=== PATIENT | female | born 1950 | race Caucasian/White ===

== ENCOUNTER → 2016-04-28 | Outpatient (REF) | payer BC ==
[2016-04-28 18:37] LABS: ALBUMIN 4.2 GM/DL (3.2-5.2); ALBUMIN/GLOBULIN RATIO 1.31 (1.00-1.93); ALKALINE PHOSPHATASE 76 U/L (45-117); ALT/SGPT 28 U/L (12-78); ANION GAP 9 MEQ/L (8-16); AST/SGOT 21 U/L (15-37); BILIRUBIN,TOTAL 0.7 MG/DL (0.2-1.0); BLOOD UREA NITROGEN 18 MG/DL (7-18); CALCIUM LEVEL 8.9 MG/DL (8.8-10.2); CARBON DIOXIDE LEVEL 31 MEQ/L (21-32); CHLORIDE LEVEL 103 MEQ/L (98-107); CHOLESTEROL LEVEL 245 MG/DL (<200); CREATININE FOR GFR 0.82 MG/DL (0.55-1.02); GLOMERULAR FILTRATION RATE > 60.0 (>45); GLUCOSE, FASTING 98 MG/DL (80-110); POTASSIUM SERUM 3.9 MEQ/L (3.5-5.1); SODIUM LEVEL 143 MEQ/L (136-145); TOTAL PROTEIN 7.4 GM/DL (6.4-8.2); TRIGLYCERIDES LEVEL 123 MG/DL (<150)
== END ==
LOC: M SFHCCLAY 11:35
PROVIDERS: ATTEND Family Medicine
DX: I10 Essential (primary) hypertension (principal); E78.2 Mixed hyperlipidemia

== ENCOUNTER → 2017-01-05 | Outpatient (REF) | payer BC ==
[2017-01-05 12:05] LABS: ALBUMIN 3.9 GM/DL (3.2-5.2); ALBUMIN/GLOBULIN RATIO 1.15 (1.00-1.93); ALKALINE PHOSPHATASE 74 U/L (45-117); ALT/SGPT 30 U/L (12-78); ANION GAP 5 MEQ/L (8-16); AST/SGOT 18 U/L (15-37); BILIRUBIN,TOTAL 0.9 MG/DL (0.2-1.0); BLOOD UREA NITROGEN 15 MG/DL (7-18); CARBON DIOXIDE LEVEL 34 MEQ/L (21-32); CHLORIDE LEVEL 100 MEQ/L (98-107); CHOLESTEROL LEVEL 238 MG/DL (<200); CREATININE FOR GFR 0.74 MG/DL (0.55-1.02); GLOMERULAR FILTRATION RATE > 60.0 (>45); GLUCOSE, FASTING 96 MG/DL (80-110); SODIUM LEVEL 139 MEQ/L (136-145); TOTAL PROTEIN 7.3 GM/DL (6.4-8.2); TRIGLYCERIDES LEVEL 127 MG/DL (<150)
== END ==
LOC: M SFHCCLAY 08:50
PROVIDERS: ATTEND Family Medicine
DX: E78.2 Mixed hyperlipidemia (principal); I10 Essential (primary) hypertension

== ENCOUNTER → 2017-07-27 | Outpatient (REF) | payer BC ==
[2017-07-27 17:24] LABS: ALBUMIN/GLOBULIN RATIO 1.18 (1.00-1.93); ALKALINE PHOSPHATASE 71 U/L (45-117); ALT/SGPT 31 U/L (12-78); ANION GAP 4 MEQ/L (8-16); AST/SGOT 19 U/L (7-37); BILIRUBIN,TOTAL 0.7 MG/DL (0.2-1.0); BLOOD UREA NITROGEN 16 MG/DL (7-18); CARBON DIOXIDE LEVEL 31 MEQ/L (21-32); CHLORIDE LEVEL 108 MEQ/L (98-107); CHOLESTEROL LEVEL 240 MG/DL (<200); CREATININE FOR GFR 0.68 MG/DL (0.55-1.30); GLOMERULAR FILTRATION RATE > 60.0 (>45); GLUCOSE, FASTING 100 MG/DL (70-100); HDL CHOLESTEROL 57 MG/DL (>40); LDL CHOLESTEROL 159.4 MG/DL (<100); NON-HDL-C 183 MG/DL; POTASSIUM SERUM 4.1 MEQ/L (3.5-5.1); SODIUM LEVEL 143 MEQ/L (136-145); TOTAL PROTEIN 7.4 GM/DL (6.4-8.2); TRIGLYCERIDES LEVEL 118 MG/DL (<150)
== END ==
LOC: M SFHCCLAY 11:22
DX: I10 Essential (primary) hypertension (principal); E78.2 Mixed hyperlipidemia
CPT/HCPCS: 80053

== ENCOUNTER → 2017-09-25 | Outpatient (REF) | payer BC | LOC: M SFHCLERA 13:18 | DX: J02.9 Acute pharyngitis, unspecified (principal) ==

== ENCOUNTER → 2018-01-24 | Outpatient (CLI) | payer BC ==
[2018-01-24 14:22] LABS: ANION GAP 8 MEQ/L (8-16); AST/SGOT 27 U/L (7-37); BLOOD UREA NITROGEN 15 MG/DL (7-18); CARBON DIOXIDE LEVEL 28 MEQ/L (21-32); CHLORIDE LEVEL 103 MEQ/L (98-107); CREATININE FOR GFR 0.74 MG/DL (0.55-1.30); GLOMERULAR FILTRATION RATE > 60.0 (>45); GLUCOSE, FASTING 104 MG/DL (70-100); POTASSIUM SERUM 4.2 MEQ/L (3.5-5.1); SODIUM LEVEL 139 MEQ/L (136-145)
[2018-01-24 14:23] LABS: ALBUMIN 4.1 GM/DL (3.2-5.2); ALBUMIN/GLOBULIN RATIO 1.14 (1.00-1.93); ALKALINE PHOSPHATASE 76 U/L (45-117); ALT/SGPT 38 U/L (12-78); BILIRUBIN,TOTAL 0.8 MG/DL (0.2-1.0); CHOLESTEROL LEVEL 252 MG/DL (<200); CHOLESTEROL RISK RATIO 4.271 (<5); HDL CHOLESTEROL 59 MG/DL (>40); LDL CHOLESTEROL 169 MG/DL (<100); NON-HDL-C 193 MG/DL; TOTAL PROTEIN 7.7 GM/DL (6.4-8.2); TRIGLYCERIDES LEVEL 121 MG/DL (<150)
== END ==
LOC: M SMT 11:03
DX: E78.2 Mixed hyperlipidemia (principal)
CPT/HCPCS: 80053

== ENCOUNTER 2018-01-26 00:20 | Emergency (ER) | payer BC ==
[2018-01-26] MEDS: methylPREDNISolone INJ 125 MG/2 ML VIAL (J2930) IV (01:12)
[2018-01-26] MEDS: diphenhydrAMINE INJ 50MG/ML VIAL (J1200) IV ×2 (01:13→01:14)
[2018-01-26] MEDS: FAMOTIDINE IV BAG 20 MG in APPROPRIATE DILUENT 1 EA IV (01:17)
== END 2018-01-26 02:08 | disposition home or self-care (01) ==
LOC: M ED 00:20
DX: R21 Rash and other nonspecific skin eruption (principal); T36.0X5A Adverse effect of penicillins, initial encounter; X58.XXXA Exposure to other specified factors, initial encounter; I10 Essential (primary) hypertension; K21.9 Gastro-esophageal reflux disease without esophagitis; Z88.0 Allergy status to penicillin; Z88.8 Allergy status to other drugs, medicaments and biological substances
CPT/HCPCS: J2930

== ENCOUNTER → 2018-03-09 | Outpatient (CLI) | payer BC | LOC: M RAD 12:50 | DX: N64.4 Mastodynia (principal); N60.32 Fibrosclerosis of left breast | CPT/HCPCS: 77066 ==

== ENCOUNTER → 2018-05-31 | Outpatient (REF) | payer BC ==
[~2018-05-31] MED LIST: AMOX875T PO; OMEP20CA3; PEPC1TAB5 PO; PRED20TA PO; TRIAMTERENE
== END ==
LOC: M SFHCWAGY 14:07
PROVIDERS: ATTEND Nurse Practitioner Family
DX: Z12.4 Encounter for screening for malignant neoplasm of cervix (principal); Z11.51 Encounter for screening for human papillomavirus (HPV); N88.8 Other specified noninflammatory disorders of cervix uteri

== ENCOUNTER → 2018-06-28 | Outpatient (CLI) | payer BC ==
--- NOTE | 2018-06-29 02:37 | REP ---
Clinical: Right hip pain. Technique: Neutral and frog lateral views of the right hip. Findings: Mild age-related degenerative changes are appreciated including subtle increase sclerosis to the acetabular roof with minimal joint space narrowing and marginal spurring. No acute fracture dislocation. No periarticular calcifications or loose bodies. Surrounding soft tissues normal. Impression: Mild age-related changes.
== END ==
LOC: M CLY 13:21
PROVIDERS: ATTEND Nurse Practitioner Family
DX: M16.11 Unilateral primary osteoarthritis, right hip (principal); M25.551 Pain in right hip

== ENCOUNTER → 2018-07-22 | Outpatient (REF) | payer BC ==
[2018-07-22 17:06] LABS: ALBUMIN 3.9 GM/DL (3.2-5.2); ALT/SGPT 32 U/L (12-78); BILIRUBIN,TOTAL 0.8 MG/DL (0.2-1.0); BLOOD UREA NITROGEN 19 MG/DL (7-18); CARBON DIOXIDE LEVEL 33 MEQ/L (21-32); CHLORIDE LEVEL 104 MEQ/L (98-107); CHOLESTEROL LEVEL 234 MG/DL (<200); CHOLESTEROL RISK RATIO 4.034 (<5); CREATININE FOR GFR 0.76 MG/DL (0.55-1.30); GLOMERULAR FILTRATION RATE > 60.0 (>45); GLUCOSE, FASTING 98 MG/DL (70-100); HDL CHOLESTEROL 58 MG/DL (>40); LDL CHOLESTEROL 148 MG/DL (<100); NON-HDL-C 176 MG/DL; POTASSIUM SERUM 3.7 MEQ/L (3.5-5.1); SODIUM LEVEL 143 MEQ/L (136-145); TOTAL PROTEIN 7.1 GM/DL (6.4-8.2); TRIGLYCERIDES LEVEL 140 MG/DL (<150)
== END ==
LOC: M SFHCCLAY 10:51
PROVIDERS: ATTEND Family Medicine
DX: E78.2 Mixed hyperlipidemia (principal)

== ENCOUNTER → 2018-10-31 | Outpatient (CLI) | payer BC ==
[~2018-10-31] MED LIST changes: -OMEP20CA3; +OMEP20CA4
[2018-10-31 10:24] LABS: ALT/SGPT 24 U/L (12-78); BILIRUBIN,TOTAL 0.7 MG/DL (0.2-1.0); BLOOD UREA NITROGEN 14 MG/DL (7-18); CALCIUM LEVEL 8.8 MG/DL (8.8-10.2); CARBON DIOXIDE LEVEL 30 MEQ/L (21-32); CHLORIDE LEVEL 104 MEQ/L (98-107); CHOLESTEROL LEVEL 210 MG/DL (<200); CREATININE FOR GFR 0.69 MG/DL (0.55-1.30); GLOMERULAR FILTRATION RATE > 60.0 (>45); GLUCOSE, FASTING 105 MG/DL (70-100); HDL CHOLESTEROL 58 MG/DL (>40); LDL CHOLESTEROL 120 MG/DL (<100); NON-HDL-C 152 MG/DL; POTASSIUM SERUM 3.8 MEQ/L (3.5-5.1); SODIUM LEVEL 141 MEQ/L (136-145); TOTAL PROTEIN 7.4 GM/DL (6.4-8.2); TRIGLYCERIDES LEVEL 161 MG/DL (<150)
== END ==
LOC: M SMT 08:22
PROVIDERS: ATTEND Family Medicine
DX: E78.2 Mixed hyperlipidemia (principal)

== ENCOUNTER → 2019-03-31 | Outpatient (REF) | payer BC ==
[~2019-03-31] MED LIST changes: +OMEP-172; -OMEP20CA4
[2019-03-31 11:58] LABS: BASO # 0.1 10^3/uL (0.0-0.2); BASO % 0.7 % (0.0-1.0); EOS # 0.1 10^3/uL (0.0-0.5); EOS % 1.3 % (0.0-3.0); HEMATOCRIT 38.5 % (36.0-47.0); LYMPH # 2.4 10^3/uL (1.5-5.0); LYMPH % 24.9 % (24.0-44.0); MEAN CORPUSCULAR HEMOGLOBIN 32.3 pg (27.0-33.0); MEAN CORPUSCULAR HGB CONC 33.8 g/dl (32.0-36.5); MEAN CORPUSCULAR VOLUME 95.5 fl (80.0-96.0); MONO # 0.8 10^3/uL (0.0-0.8); MONO % 8.3 % (0.0-5.0); NEUTROPHILS # 6.2 10^3/uL (1.5-8.5); NEUTROPHILS % 64.1 % (36.0-66.0); PLATELET COUNT, AUTOMATED 323 10^3/uL (150-450); RED BLOOD COUNT 4.03 10^6/uL (4.00-5.40); WHITE BLOOD COUNT 9.7 10^3/uL (4.0-10.0)
[2019-03-31 12:33] LABS: HEMOGLOBIN A1c 6.3 %
[2019-03-31 12:42] LABS: ALT/SGPT 27 U/L (12-78); BILIRUBIN,TOTAL 0.8 MG/DL (0.2-1.0); BLOOD UREA NITROGEN 14 MG/DL (7-18); CALCIUM LEVEL 9.3 MG/DL (8.8-10.2); CARBON DIOXIDE LEVEL 33 MEQ/L (21-32); CHLORIDE LEVEL 102 MEQ/L (98-107); CHOLESTEROL LEVEL 251 MG/DL (<200); CHOLESTEROL RISK RATIO 4.183 (<5); CREATININE FOR GFR 0.74 MG/DL (0.55-1.30); GLOMERULAR FILTRATION RATE > 60.0 (>45); GLUCOSE, FASTING 101 MG/DL (70-100); HDL CHOLESTEROL 60 MG/DL (>40); LDL CHOLESTEROL 162 MG/DL (<100); NON-HDL-C 191 MG/DL; POTASSIUM SERUM 3.9 MEQ/L (3.5-5.1); SODIUM LEVEL 140 MEQ/L (136-145); TOTAL PROTEIN 7.5 GM/DL (6.4-8.2); TRIGLYCERIDES LEVEL 145 MG/DL (<150)
== END ==
LOC: M SFHCCLAY 09:46
PROVIDERS: ATTEND Family Medicine
DX: I10 Essential (primary) hypertension (principal); R73.01 Impaired fasting glucose; E78.2 Mixed hyperlipidemia

== ENCOUNTER → 2019-05-24 | Outpatient (REF) | payer BC ==
[~2019-05-24] MED LIST changes: -OMEP-172; +OMEP1CAP73
== END ==
LOC: M SFHCLERA 16:18
PROVIDERS: ATTEND Nurse Practitioner Family
DX: J02.9 Acute pharyngitis, unspecified (principal)

== ENCOUNTER → 2019-09-19 | Outpatient (REF) | payer BC ==
[2019-09-19 18:55] LABS: BASO # 0.1 10^3/uL (0.0-0.2); BASO % 0.8 % (0.0-1.0); EOS # 0.1 10^3/uL (0.0-0.5); EOS % 1.8 % (0.0-3.0); HEMATOCRIT 40.6 % (36.0-47.0); HEMOGLOBIN 13.5 g/dl (12.0-15.5); LYMPH # 2.1 10^3/uL (1.5-5.0); MEAN CORPUSCULAR HEMOGLOBIN 31.7 pg (27.0-33.0); MEAN CORPUSCULAR HGB CONC 33.3 g/dl (32.0-36.5); MEAN CORPUSCULAR VOLUME 95.3 fl (80.0-96.0); MONO # 0.6 10^3/uL (0.0-0.8); MONO % 7.4 % (0.0-5.0); NEUTROPHILS # 5.1 10^3/uL (1.5-8.5); NEUTROPHILS % 63.5 % (36.0-66.0); PLATELET COUNT, AUTOMATED 314 10^3/uL (150-450); RED BLOOD COUNT 4.26 10^6/uL (4.00-5.40)
[2019-09-19 19:27] LABS: ALBUMIN 3.9 GM/DL (3.2-5.2); ALT/SGPT 23 U/L (12-78); BILIRUBIN,TOTAL 0.7 MG/DL (0.2-1.0); BLOOD UREA NITROGEN 19 MG/DL (7-18); CALCIUM LEVEL 9.1 MG/DL (8.8-10.2); CARBON DIOXIDE LEVEL 30 MEQ/L (21-32); CHLORIDE LEVEL 104 MEQ/L (98-107); CHOLESTEROL LEVEL 209 MG/DL (<200); CHOLESTEROL RISK RATIO 3.542 (<5); CREATININE FOR GFR 0.71 MG/DL (0.55-1.30); GLOMERULAR FILTRATION RATE > 60.0 (>45); GLUCOSE, FASTING 101 MG/DL (70-100); HDL CHOLESTEROL 59 MG/DL (>40); LDL CHOLESTEROL 126 MG/DL (<100); NON-HDL-C 150 MG/DL; POTASSIUM SERUM 4.2 MEQ/L (3.5-5.1); SODIUM LEVEL 139 MEQ/L (136-145); TOTAL PROTEIN 7.4 GM/DL (6.4-8.2); TRIGLYCERIDES LEVEL 118 MG/DL (<150)
[2019-09-19 21:31] LABS: HEMOGLOBIN A1c 5.7 %
== END ==
LOC: M SFHCCLAY 10:05
PROVIDERS: ATTEND Family Medicine
DX: I10 Essential (primary) hypertension (principal); R73.01 Impaired fasting glucose; E78.2 Mixed hyperlipidemia

== ENCOUNTER → 2020-01-08 | Outpatient (REF) | payer BC ==
[2020-01-08 12:59] LABS: ALBUMIN 3.9 GM/DL (3.2-5.2); ALT/SGPT 25 U/L (12-78); BILIRUBIN,TOTAL 0.8 MG/DL (0.2-1.0); BLOOD UREA NITROGEN 17 MG/DL (7-18); CALCIUM LEVEL 9.3 MG/DL (8.8-10.2); CARBON DIOXIDE LEVEL 33 MEQ/L (21-32); CHLORIDE LEVEL 107 MEQ/L (98-107); CREATININE FOR GFR 0.67 MG/DL (0.55-1.30); GLOMERULAR FILTRATION RATE > 60.0 (>45); GLUCOSE, FASTING 103 MG/DL (70-100); MAGNESIUM LEVEL 2.2 MG/DL (1.8-2.4); POTASSIUM SERUM 3.9 MEQ/L (3.5-5.1); SODIUM LEVEL 141 MEQ/L (136-145); TOTAL PROTEIN 7.2 GM/DL (6.4-8.2)
== END ==
LOC: M SFHCCLAY 12:06
PROVIDERS: ATTEND Family Medicine
DX: I10 Essential (primary) hypertension (principal); E78.2 Mixed hyperlipidemia; E11.9 Type 2 diabetes mellitus without complications

== ENCOUNTER → 2020-06-21 | Outpatient (REF) | payer BC ==
[2020-06-21 16:34] LABS: ALBUMIN 3.9 GM/DL (3.2-5.2); ALT/SGPT 28 U/L (12-78); BILIRUBIN,TOTAL 0.7 MG/DL (0.2-1.0); BLOOD UREA NITROGEN 16 MG/DL (7-18); CALCIUM LEVEL 9.5 MG/DL (8.8-10.2); CARBON DIOXIDE LEVEL 32 MEQ/L (21-32); CHLORIDE LEVEL 106 MEQ/L (98-107); CREATININE FOR GFR 0.68 MG/DL (0.55-1.30); GLOMERULAR FILTRATION RATE > 60.0 (>45); GLUCOSE, FASTING 97 MG/DL (70-100); SODIUM LEVEL 142 MEQ/L (136-145); TOTAL PROTEIN 7.1 GM/DL (6.4-8.2)
[2020-06-21 16:36] LABS: BASO # 0.1 10^3/uL (0.0-0.2); BASO % 0.9 % (0.0-1.0); EOS # 0.1 10^3/uL (0.0-0.5); EOS % 1.7 % (0.0-3.0); HEMATOCRIT 38.7 % (36.0-47.0); HEMOGLOBIN 12.5 g/dl (12.0-15.5); LYMPH # 2.6 10^3/uL (1.5-5.0); LYMPH % 34.2 % (24.0-44.0); MEAN CORPUSCULAR HEMOGLOBIN 30.9 pg (27.0-33.0); MEAN CORPUSCULAR HGB CONC 32.3 g/dl (32.0-36.5); MEAN CORPUSCULAR VOLUME 95.8 fl (80.0-96.0); MONO # 0.6 10^3/uL (0.0-0.8); MONO % 7.9 % (2.0-8.0); NEUTROPHILS # 4.1 10^3/uL (1.5-8.5); NEUTROPHILS % 54.5 % (36.0-66.0); PLATELET COUNT, AUTOMATED 294 10^3/uL (150-450); RED BLOOD COUNT 4.04 10^6/uL (4.00-5.40); WHITE BLOOD COUNT 7.5 10^3/uL (4.0-10.0)
[2020-06-21 16:46] LABS: HEMOGLOBIN A1c 5.7 %
== END ==
LOC: M SFHCCLAY 11:24
PROVIDERS: ATTEND Family Medicine
DX: I10 Essential (primary) hypertension (principal); R73.01 Impaired fasting glucose

== ENCOUNTER → 2020-07-22 | Outpatient (CLI) | payer BC ==
--- NOTE | 2020-07-22 17:13 | REPMRS ---
Patient History The patient states she had a clinical breast exam in June 2020. No known family history of cancer. Benign excisional biopsy of the right breast, 1995. Taking unspecified hormones for 2 years. Digital Woman Screen Mammo: July 22, 2020 - Exam #: [id number] Bilateral CC and MLO view(s) were taken. Technologist: Mony Hatch, Technologist Prior study comparison: March 09, 2018, digital mammo diagnostic bilateral, performed at [facility]. May 07, 2015, digital woman screen mammo performed at [facility]. October 16, 2013, digital woman screen mammo performed at [facility]. FINDINGS: The breast tissue is heterogeneously dense. This may lower the sensitivity of mammography. The Volpara volumetric breast density category is: C. There is a moderate amount of heterogeneously dense fibroglandular tissue which is fairly symmetric. There is no interval development of dominant mass, architectural distortion, or grouped microcalcification typical of malignancy. There has been no change in the appearance of the mammogram from the prior studies. 3-D tomosynthesis shows no additional findings. Assessment: BI-RADS/ACR category 1 mammogram. Negative Mammogram. Recommendation Routine screening mammogram of both breasts in 1 year (for women over age 40). This patient's [facility] Lifetime Breast Cancer RIsk is estimated at 6.8 %. This mammogram was interpreted with the aid of an FDA-approved computer-aided dectection system. Electronically Signed By: Mark James MD 07/22/20 [id number]
== END ==
LOC: M WHC 13:33
PROVIDERS: ATTEND Nurse Practitioner Family
DX: Z12.31 Encounter for screening mammogram for malignant neoplasm of breast (principal)

== ENCOUNTER → 2020-10-22 | Outpatient (CLI) | payer BC ==
[2020-10-22 13:38] LABS: BASO # 0.1 10^3/uL (0.0-0.2); BASO % 0.8 % (0.0-1.0); EOS # 0.1 10^3/uL (0.0-0.5); EOS % 0.7 % (0.0-3.0); HEMATOCRIT 38.1 % (36.0-47.0); HEMOGLOBIN 12.6 g/dl (12.0-15.5); LYMPH # 2.1 10^3/uL (1.5-5.0); LYMPH % 24.7 % (24.0-44.0); MEAN CORPUSCULAR HEMOGLOBIN 31.4 pg (27.0-33.0); MEAN CORPUSCULAR HGB CONC 33.1 g/dl (32.0-36.5); MONO # 0.6 10^3/uL (0.0-0.8); MONO % 6.6 % (2.0-8.0); NEUTROPHILS # 5.6 10^3/uL (1.5-8.5); NEUTROPHILS % 66.7 % (36.0-66.0); PLATELET COUNT, AUTOMATED 327 10^3/uL (150-450); RED BLOOD COUNT 4.01 10^6/uL (4.00-5.40); WHITE BLOOD COUNT 8.3 10^3/uL (4.0-10.0)
[2020-10-22 14:07] LABS: HEMOGLOBIN A1c 5.6 %
[2020-10-22 14:09] LABS: ALBUMIN 4.1 GM/DL (3.2-5.2); ALT/SGPT 18 U/L (12-78); AMYLASE 37 U/L (25-115); BILIRUBIN,TOTAL 0.8 MG/DL (0.2-1.0); BLOOD UREA NITROGEN 15 MG/DL (7-18); CALCIUM LEVEL 9.3 MG/DL (8.8-10.2); CARBON DIOXIDE LEVEL 32 MEQ/L (21-32); CHLORIDE LEVEL 103 MEQ/L (98-107); CHOLESTEROL LEVEL 221 MG/DL (<200); CHOLESTEROL RISK RATIO 3.507 (<5); CREATININE FOR GFR 0.66 MG/DL (0.55-1.30); GLOMERULAR FILTRATION RATE > 60.0 (>45); GLUCOSE, FASTING 106 MG/DL (70-100); HDL CHOLESTEROL 63 MG/DL (>40); LDL CHOLESTEROL 137 MG/DL (<100); LIPASE 134 U/L (73-393); MAGNESIUM LEVEL 2.1 MG/DL (1.8-2.4); NON-HDL-C 158 MG/DL; POTASSIUM SERUM 3.7 MEQ/L (3.5-5.1); SODIUM LEVEL 141 MEQ/L (136-145); TOTAL PROTEIN 7.2 GM/DL (6.4-8.2); TRIGLYCERIDES LEVEL 106 MG/DL (<150)
== END ==
LOC: M PLALAB 09:29
PROVIDERS: ATTEND Family Medicine
DX: I10 Essential (primary) hypertension (principal); R73.01 Impaired fasting glucose; E78.2 Mixed hyperlipidemia; K21.9 Gastro-esophageal reflux disease without esophagitis; K29.70 Gastritis, unspecified, without bleeding

== ENCOUNTER → 2021-02-04 | Outpatient (REF) | payer BC ==
[2021-02-04 16:23] LABS: BASO # 0.1 10^3/uL (0.0-0.2); BASO % 0.8 % (0.0-1.0); EOS # 0.1 10^3/uL (0.0-0.5); EOS % 0.6 % (0.0-3.0); HEMATOCRIT 39.8 % (36.0-47.0); HEMOGLOBIN 13.1 g/dl (12.0-15.5); LYMPH # 1.7 10^3/uL (1.5-5.0); LYMPH % 19.7 % (24.0-44.0); MEAN CORPUSCULAR HEMOGLOBIN 31.4 pg (27.0-33.0); MEAN CORPUSCULAR HGB CONC 32.9 g/dl (32.0-36.5); MEAN CORPUSCULAR VOLUME 95.4 fl (80.0-96.0); MONO # 0.6 10^3/uL (0.0-0.8); MONO % 7.4 % (2.0-8.0); NEUTROPHILS # 6.2 10^3/uL (1.5-8.5); NEUTROPHILS % 70.9 % (36.0-66.0); PLATELET COUNT, AUTOMATED 334 10^3/uL (150-450); RED BLOOD COUNT 4.17 10^6/uL (4.00-5.40); WHITE BLOOD COUNT 8.7 10^3/uL (4.0-10.0)
[2021-02-04 16:50] LABS: ERYTHROCYTE SEDIMENTATION RATE 14 mm/hr (0-30)
[2021-02-04 17:04] LABS: ALT/SGPT 18 U/L (12-78); BILIRUBIN,TOTAL 0.8 MG/DL (0.2-1.0); BLOOD UREA NITROGEN 16 MG/DL (7-18); C REACTIVE PROTEIN QUANTITATIV 0.44 MG/DL (0.00-0.30); CALCIUM LEVEL 9.7 MG/DL (8.8-10.2); CARBON DIOXIDE LEVEL 30 MEQ/L (21-32); CHLORIDE LEVEL 105 MEQ/L (98-107); CREATININE FOR GFR 0.72 MG/DL (0.55-1.30); GLOMERULAR FILTRATION RATE > 60.0 (>45); GLUCOSE, FASTING 111 MG/DL (70-100); POTASSIUM SERUM 3.8 MEQ/L (3.5-5.1); SODIUM LEVEL 141 MEQ/L (136-145); TOTAL PROTEIN 7.4 GM/DL (6.4-8.2)
[2021-02-04 18:18] LABS: HEMOGLOBIN A1c 5.5 %
== END ==
LOC: M SFHCCLAY 10:55
PROVIDERS: ATTEND Family Medicine
DX: K21.9 Gastro-esophageal reflux disease without esophagitis (principal); R10.84 Generalized abdominal pain; R73.01 Impaired fasting glucose; I10 Essential (primary) hypertension

== ENCOUNTER 2021-02-13 10:30 | Emergency (ER) | payer BC ==
[~2021-02-13] VITALS: Ht 157.5 cm; Wt 58.6 kg
--- OUTSIDE RECORDS SUMMARY | 2021-02-13 10:37 | CCD ---
Author Author [facility] Organization [facility] Address Unknown Phone Unavailable Care Team Providers Care Joint Cutter Machine Name Role Phone Ashley Damon Unavailable PROBLEMS Type Condition ICD9-CM Code [id number] Code Onset Dates Condition S tatus W/U Status Risk SNOMED Code Notes Problem Vaginal dryness, menopausal N95.1 Active confirmed 29811752 Problem Essential hypertension I10 Active confirmed 52096399 Problem Piriformis syndrome of right side G57.01 Active confirmed 473351564724309 Problem Gastritis without bleeding, unspecified chronicity, unspecified gastritis type K29.70 Active confirmed 5171843 Problem Mixed hyperlipidemia E78.2 Active confirmed 574121664 Problem Allergic rhinitis, unspecified allergic rhinitis type J30.9 Active confirmed 04739732 Problem Gastroesophageal reflux disease without esophagitis K21.9 Active confirmed 319499629 Problem Seborrheic keratoses L82.1 Active confirmed 288047211 ALLERGIES Allergen (clinical drug ingredient) Drug/Non Drug Allergy do cumented on EMR Reaction Allergy Type Onset Date Status amoxicillin Amoxicillin(NDC Code:[address]-53) Hives Drug Aller gy Active Benadryl anxiety Drug Allergy Active lisinopril Lisinopril(NDC Code:[address]-16) cough Drug Allergy Active rosuvastatin Crestor(NDC Code:[address]-08) Myalgia Drug Allergy Active ENCOUNTERS from 1950 to 2021-02-10 Encounter Location Date Provider Diagnosis [facility] Josephine STRAWDOMINGO [phone] [place] [address] Jan, 2021 Damon Huizenga Gastroesophageal reflux disease without esophagitis K21.9 IMMUNIZATIONS Vaccine Route Administration Date Status COVID-19 dose #2 given elsewhere Unspecified Unknown May 20, 2020 Administered Pneumococcal 0.5mL Prevnar 13 IM Intramuscular November 01, 2018 A dministered Influenza 6mo & up Fluzone Unknown Feb 08, 2017 Admin istered Influenza 6mo & up Fluzone Unknown Feb 09, 2016 Admin istered SOCIAL HISTORY Tobacco Use: Social History Observation Description Date Details (start date - stop date) Never Smoker Sex Assigned At : Social History Observation Description Sex Assigned At Unknown Education: Question Answer Notes Level of Education: Finished High School Audit Question Answer Notes Total Score: 1 Interpretation: Alcohol Education Language: Question Answer Notes Languages spoken: Vietnamese Confucianism: Question Answer Notes Confucianism 21 Mu-Ism Domestic Violence: Question Answer Notes Status: Sexual Hx: Question Answer Notes Had sex in the last 12 months (vaginal, oral, or anal)? Yes Have you ever had an STD? No Prevention Strategies discussed: Other with Men only Use protection? No Drug and Alcohol Question Answer Notes Total Score: 0 Interpretation: No problems reported Alcohol Screening: Question Answer Notes Did you have a drink containing alcohol in the past year? Ye s Points 2 Interpretation Negative How often did you have six or more drinks on one occas ion in the past year? Never (0 points) How many drinks did you have on a typica l day when you were drinking in the past year? 3 or 4 (1 point) How often did you have a drink containing alcohol in t he past year? Monthly or less (1 point) BMI Care Goal Follow-Up Question Answer Notes Above Normal BMI Follow-Up Giving encouragement to exercise Tobacco Use: Question Answer Notes Are you a: never smoker never smoker REASON FOR REFERRAL No Information VITAL SIGNS No information MEDICATIONS Medication SIG (Take, Route, Frequency, Duration) Notes Start Da te End Date Status Omeprazole 20 MG 1 capsule 30 minutes before morning meal Orally Once a day for 90 days Active Yuvafem 10 MCG 1 tablet Vaginal Two times a Week for 90 days Active Pravastatin Sodium 40 MG 1 tablet Orally Once a day for 90 days Active Triamterene-HCTZ 37.5-25 MG 1 capsule in the morning O rally Once a day for 90 days Active Dicyclomine HCl 20 MG 1 tablet Orally Three times a day for 30 d ay(s) Jan, Active Losartan Potassium 25 MG 1 tablet Orally Daily for 90 days Active PROCEDURES No Information RESULTS No Results REASON FOR VISIT lab results MEDICAL (GENERAL) HISTORY Type Description Date Medical History GERD Medical History Hypertension Medical History Hyperlipidemia Medical History Impaired glucose Surgical History Rt breast cyst removal -benign 1996 Surgical History Dental surgery 04/2008 Goals Section No Information Health Concerns No Information MEDICAL EQUIPMENT No Information MENTAL STATUS No Information FUNCTIONAL STATUS No Information ASSESSMENTS Encounter Date Diagnosis Assessment Notes Treatment Notes Treatm ent Clinical Notes Jan, Gastroesophageal reflux dise ase without esophagitis (ICD-10 - K21.9) PLAN OF TREATMENT Medication Medication Name Sig Start Date Stop Date Triamterene-HCTZ 37.5-25 MG 1 capsule in the morning O rally Once a day for 90 days Dicyclomine HCl 20 MG 1 tablet Orally Three times a day for 30 day(s) Jan, Pravastatin Sodium 40 MG 1 tablet Orally Once a day for 90 days Losartan Potassium 25 MG 1 tablet Orally Daily for 90 days Treatment Notes Test Name Order Date XRAY UPPER G.I. WITH SMALL BOWEL XR.UGSB PLZ or [facility] 13-02-14 Next Appt Details Provider Name:Damon Ramirez, 03:00:00 PM, [address] , , [place], [address], Insurance Providers Payer Name Payer Address Payer Phone Insured Name Patient Relati onship to Insured Coverage Start Date Coverage End Date [facility] [id number] [facility] [id number] MARSHA ROMERO self
--- OUTSIDE RECORDS SUMMARY | 2021-02-13 10:38 | CCD ---
Author Author [facility] Organization [facility] Address Unknown Phone Unavailable Care Team Providers Care Embossing Machine Operator Name Role Phone Damon Ramirez Unavailable PROBLEMS Type Condition ICD9-CM Code [id number] Code Onset Dates Condition S tatus W/U Status Risk SNOMED Code Notes Problem Vaginal dryness, menopausal N95.1 Active confirmed 47415279 Problem Essential hypertension I10 Active confirmed 97158263 Problem Piriformis syndrome of right side G57.01 Active confirmed 323377815012557 Problem Gastritis without bleeding, unspecified chronicity, unspecified gastritis type K29.70 Active confirmed 8345401 Problem Mixed hyperlipidemia E78.2 Active confirmed 765655806 Problem Allergic rhinitis, unspecified allergic rhinitis type J30.9 Active confirmed 94167843 Problem Gastroesophageal reflux disease without esophagitis K21.9 Active confirmed 466889385 Problem Seborrheic keratoses L82.1 Active confirmed 137426096 ALLERGIES Allergen (clinical drug ingredient) Drug/Non Drug Allergy do cumented on EMR Reaction Allergy Type Onset Date Status amoxicillin Amoxicillin(NDC Code:[address]-66) Hives Drug Aller gy Active Benadryl anxiety Drug Allergy Active lisinopril Lisinopril(NDC Code:[address]-98) cough Drug Allergy Active rosuvastatin Crestor(NDC Code:[address]-17) Myalgia Drug Allergy Active ENCOUNTERS from 1950 to 2021-02-03 Encounter Location Date Provider Diagnosis [facility] [id number] [place] [address] [place] [address] Jan, Damon Huizenga IMMUNIZATIONS Vaccine Route Administration Date Status COVID-19 [...] Education Language: Question Answer Notes Languages spoken: Irish Gnosticism: Question Answer Notes Gnosticism 21 Jainism Domestic Violence: Question Answer Notes Status: Sexual [...] Notes Start Da te End Date Status Pravastatin Sodium 40 MG 1 tablet Orally Once a day for 90 days Active Carafate 1 GM 1 tablet on an empty stomach Orally four times daily Active Losartan Potassium 25 MG 1 tablet Orally Daily for 90 days Active Triamterene-HCTZ 37.5-25 MG 1 capsule in the morning O rally Once a day for 90 days Active Omeprazole 20 MG 1 capsule 30 minutes before morning meal Orally Once a day for 90 days Active Yuvafem 10 MCG 1 tablet Vaginal Two times a Week for 90 days Active PROCEDURES No Information RESULTS No Results REASON FOR VISIT triage MEDICAL (GENERAL) HISTORY Type Description Date Medical History GERD Medical History Hypertension Medical History Hyperlipidemia Medical History Impaired glucose Surgical History Rt breast cyst removal -benign 1996 Surgical History Dental surgery 04/2008 Goals Section No Information Health Concerns No Information MEDICAL EQUIPMENT No Information MENTAL STATUS No Information FUNCTIONAL STATUS No Information ASSESSMENTS No Information PLAN OF TREATMENT Medication Medication Name Sig Start Date Stop Date Pravastatin Sodium 40 MG 1 tablet Orally Once a day for 90 days Omeprazole 20 MG 1 capsule 30 minutes before morning meal Orally Once a day for 90 days Yuvafem 10 MCG 1 tablet Vaginal Two times a Week for 90 days Triamterene-HCTZ 37.5-25 MG 1 capsule in the morning O rally Once a day for 90 days Losartan Potassium 25 MG 1 tablet Orally Daily for 90 days Next Appt Details Provider Name:Damon Ramirez, 10:30:00 AM, [address], , [place], [address], Provider Name:Damon Ramirez, 03:00:00 PM, [address], , [place], [address], Insurance Providers Payer Name Payer Address Payer Phone Insured Name Patient Relati onship to Insured Coverage Start Date Coverage End Date [facility] [phone] [facility] [id number] MARSHA ROMERO self
--- OUTSIDE RECORDS SUMMARY | 2021-02-13 10:38 | CCD ---
Author Author [facility] Organization [facility] Address Unknown Phone Unavailable Support Name Relationship Address Phone SOTO DE [place] O Next Of Kin [address] [place] [address] [facility] Next Of [address] [place] [address] NICK DAMI Next Of Kin [address] [place] [address] Nick Dami [facility] [address] [place] [address] Re-disclosure Warning The records that you are about to access may contain information from federally-assisted alcohol or drug abuse programs. If such information is present, then the following federally mandated warning applies: This information has been disclosed to you from records protected by federal confidentiality rules (42 CFR part 2). The federal rules prohibit you from making any further disclosure of this information unless further disclosure is expressly permitted by the written consent of the person to whom it pertains or as otherwise permitted by 42 CFR part 2. A general authorization for the release of medical or other information is NOT sufficient for this purpose. The Federal rules restrict any use of the information to criminally investigate or prosecute any alcohol or drug abuse patient.The records that you are about to access may contain highly sensitive health information, the redisclosure of which is protected by Article 27-F of the [facility] Public Health law. If you continue you may have access to information: Regarding HIV / AIDS; Provided by facilities licensed or operated by the [facility] Office of Mental Health; or Provided by the [facility] Office for People With Developmental Disabilities. If such information is present, then the following [facility] mandated warning applies: This information has been disclosed to you from confidential records which are protected by state law. State law prohibits you from making any further disclosure of this information without the specific written consent of the person to whom it pertains, or as otherwise permitted by law. Any unauthorized further disclosure in violation of state law may result in a fine or skilled nursing sentence or both. A general authorization for the release of medical or other information is NOT sufficient authorization for further disc losure. Family History Family Member Name Family Member Gender Family Member Status Date o f Status Description Data Source(s) Unknown Unknown Problem MEDENT ([facility], [facility]) mother,father Unknown Female Problem [facility] ([facility] Encounters Encounter Providers Location Date Indications Data Source(s ) Unknown [address] [facility] [place] [address] 02/06/2021 12:00:00 AM EDT [facility]CW1 ([facility]) Unknown [address] [facility] [place] [address] 02/03/2021 12:00:00 AM EDT [facility] Unknown [address] [facility] [place] [address] 01/22/2021 12:00:00 AM EDT [facility]1 [facility] [place] [address] [facility] [address] [place] [address] 10/25/2020 12:00:00 AM EDT eCW1 ([facility]) Unknown [address] [facility] [place] [address] 10/11/2020 12:00:00 AM EDT [facility]1 [facility]) Outpatient [address] [facility] [address] [place] [address] 07/22/2020 12:00:00 AM EDT [facility]1 [facility]) Unknown [address] [facility] [address] [place] [address] 07/15/2020 12:00:00 AM EDT eCW1 ([facility]) Outpatient [address] [facility] [place] [id number] 06/21/2020 12:00:00 AM EST eCW1 ([facility]) Unknown [address] [facility] [place] [address] 06/21/2020 12:00:00 AM EST eCW1 ([facility]) Unknown [address] [facility] [place] [address] 04/03/2020 12:00:00 AM EST eCW1 ([facility]) [facility] [address] [facility] [place] [address] 01/09/2020 12:00:00 AM EDT eCW1 ([facility]) Immunizations Vaccine Date Status Description Data Source(s) COVID-19 dose #2 given elsewhere Unspecified 05/20/2020 11:1 6:00 AM EST completed eCW1 ([facility]) COVID-19 dose #2 given elsewhere Unspecified 05/20/2020 11:1 6:00 AM EST completed eCW1 ([facility]) COVID-19 dose #2 given elsewhere Unspecified 05/20/2020 11:1 6:00 AM EST completed eCW1 ([facility]) COVID-19 dose #2 given elsewhere Unspecified 05/20/2020 11:1 6:00 AM EST completed eCW1 ([facility]) COVID-19 dose #2 given elsewhere Unspecified 05/20/2020 11:1 6:00 AM EST completed eCW1 ([facility]) COVID-19 dose #2 given elsewhere Unspecified 05/20/2020 11:1 6:00 AM EST completed eCW1 ([facility]) COVID-19 dose #2 given elsewhere Unspecified 05/20/2020 11:1 6:00 AM EST completed eCW1 ([facility]) COVID-19 dose #2 given elsewhere Unspecified 05/20/2020 11:1 6:00 AM EST completed eCW1 ([facility]) COVID-19 dose #2 given elsewhere Unspecified 05/20/2020 11:1 6:00 AM EST completed eCW1 ([facility]) COVID-19 VACCINE Pfizer 05/20/2020 12:00:00 AM EST completed [facility] Vaccine Series Complete: YESThis Data wa s Submitted to [facility] Via [employer]. COVID-19 VACCINE Pfizer 04/29/2020 12:00:00 AM EST completed [facility] Vaccine Series Complete: NOThis Data was Submitted to [facility] Via [employer]. Medications Medication Brand Name Start Date Product Form Dose Route Admi nistrative Instructions Pharmacy Instructions Status Indications Reaction Description Data Source(s) Dicyclomine Hydrochloride 20 MG Oral Tablet Dicyclomin e HCl 20 MG Dicyclomine HCl 20 MG 02/04/2021 12:00:00 AM EDT 1.0 {tablet} ac tive Dicyclomine HCl 20 MG eCW1 ([facility]) Losartan Potassium 25 MG Oral Tablet Losartan Potassium 25 M G 07/11/2020 12:00:00 AM EDT 1.0 {tablet} active Lo sartan Potassium 25 MG eCW1 ([facility]) Losartan Potassium 25 MG Oral Tablet Losartan Potassium 25 M G 07/11/2020 12:00:00 AM EDT 1.0 {tablet} active Lo sartan Potassium 25 MG eCW1 ([facility]) Lisinopril 5 MG Oral Tablet Lisinopril 5 MG 06/21/2020 12:00:00 AM EST 1.0 {tablet} active Lisinopril 5 MG eCW1 ([facility]) Lisinopril 5 MG Oral Tablet Lisinopril 5 MG 06/21/2020 12:00:00 AM EST 1.0 {tablet} active Lisinopril 5 MG eCW1 ([facility]) Insurance Providers Payer name Policy type / Coverage type Policy ID Covered green party ID Covered green party's relationship to ulloa Policy [place] Plan Information [place] 302/307 [id number] SP [id number] ANSI-Commercial [id number] ANSI-Commercial [id number] ANSI-Commercial [id number] ANSI-Commercial [id number] ANSI-Commercial [id number] ANSI-Commercial [id number] ANSI-Commercial [id number] ANSI-Commercial [id number] EXCELLUS BCBS B [id number] S VYS [id number] BCBS OF [facility] 306/806 [id number] SP [id number] ANSI-Commercial [id number] ANSI-Commercial [id number] ANSI-Commercial [id number] Aetna Ppo/Pos/Nap/[employer] Medinaples Part B [id number] Self [id number] BCBS/[employer] Commercial [id number] Self [id number] BS [place] Commercial [id number] Self [id number] Aetna Ppo/Pos/Nap/MC Medigap Part B [id number] Self BCBS/[employer] Commercial [id number] Self BCBS OF [place] 306/806 [id number] SP [id number] [place]BS [place] PPO 302/307 [id number] SP [id number] [facility] [place] [id number] SP [id number] [facility] P [id number] S [id number] BCBS OF [place] 306/806 [id number] SP [id number] Problems, Conditions, and Diagnoses Code Display Name Description Problem Type Effective Dates Data Source(s) K29.70 5376385 Gastritis without bl eeding, unspecified chronicity, unspecified gastritis type Problem 10/18/2020 12:00:00 AM EDT eCW1 ([facility]) Surgeries/Procedures No Information Results ID Date Data Source [id number] 01/16/2021 12:00:00 AM EDT [facility] Name Value Range Interpretation Code Description Data Deborah rce(s) Supporting Document(s) SARS coronavirus 2 Ag Negative [facility] This lab was ordered by [facility] and reported by [facility]. ID Date Data Source [id number] 01/06/2021 12:00:00 AM EDT [facility] Name Value Range Interpretation Code Description Data Deborah rce(s) Supporting Document(s) SARS coronavirus 2 Ag Negative [facility] This lab was ordered by [facility] and reported by [facility]. ID Date Data Source [id number] 12/23/2020 12:00:00 AM EDT [facility] Name Value Range Interpretation Code Description Data Deborah rce(s) Supporting Document(s) SARS coronavirus 2 Ag Negative [facility] This lab was ordered by [facility] and reported by [facility]. ID Date Data Source [id number] 12/16/2020 12:00:00 AM EDT [facility] Name Value Range Interpretation Code Description Data Deborah rce(s) Supporting Document(s) SARS coronavirus 2 Ag Negative [facility] This lab was ordered by [facility] and reported by [facility]. ID Date Data Source [id number] 12/10/2020 12:00:00 AM EDT [facility] Name Value Range Interpretation Code Description Data Deborah rce(s) Supporting Document(s) SARS coronavirus 2 Ag Negative [facility] This lab was ordered by [facility] and reported by [facility]. ID Date Data Source [id number] 10/04/2020 12:00:00 AM EDT [facility] Name Value Range Interpretation Code Description Data Deborah rce(s) Supporting Document(s) SARS coronavirus 2 Ag Negative [facility] This lab was ordered by [facility] and reported by [facility]. ID Date Data Source [id number] 10/01/2020 12:00:00 AM EDT [facility] Name Value Range Interpretation Code Description Data Deborah rce(s) Supporting Document(s) SARS coronavirus 2 Ag Negative [facility] This lab was ordered by [facility] and reported by [facility]. ID Date Data Source [id number] 09/27/2020 12:00:00 AM EDT [facility] Name Value Range Interpretation Code Description Data Deborah rce(s) Supporting Document(s) SARS coronavirus 2 Ag Negative [facility] This lab was ordered by [facility] and reported by [facility]. ID Date Data Source [id number] 09/20/2020 12:00:00 AM EDT [facility] Name Value Range Interpretation Code Description Data Deborah rce(s) Supporting Document(s) SARS coronavirus 2 Ag Negative [facility] This lab was ordered by [facility] and reported by [facility]. ID Date Data Source [id number] 09/13/2020 12:00:00 AM EDT [facility] Name Value Range Interpretation Code Description Data Deborah rce(s) Supporting Document(s) SARS coronavirus 2 Ag Negative [facility] This lab was ordered by [facility] and reported by [facility]. ID Date Data Source [id number] 08/30/2020 12:00:00 AM EDT [facility] Name Value Range Interpretation Code Description Data Deborah rce(s) Supporting Document(s) SARS coronavirus 2 Ag Negative [facility] This lab was ordered by [facility] and reported by [facility]. ID Date Data Source [id number] 08/27/2020 12:00:00 AM EDT [facility] Name Value Range Interpretation Code Description Data Deborah rce(s) Supporting Document(s) SARS coronavirus 2 Ag Negative [facility] This lab was ordered by [facility] and reported by [facility]. ID Date Data Source [id number] 08/06/2020 12:00:00 AM EDT [facility] Name Value Range Interpretation Code Description Data Deborah rce(s) Supporting Document(s) SARS coronavirus 2 Ag Negative [facility] This lab was ordered by [facility] and reported by [facility]. ID Date Data Source [id number] 07/23/2020 12:00:00 AM EDT [facility] Name Value Range Interpretation Code Description Data Deborah rce(s) Supporting Document(s) SARS coronavirus 2 Ag Negative [facility] This lab was ordered by [facility] and reported by [facility]. ID Date Data Source [id number] 07/16/2020 08:40:00 AM EDT [facility] Name Value Range Interpretation Code Description Data Deborah rce(s) Supporting Document(s) SARS coronavirus 2 RNA Not Detected [facility] This lab was ordered by [facility] and reported by [facility]. ID Date Data Source [id number] 07/09/2020 12:00:00 PM EDT [facility] Name Value Range Interpretation Code Description Data Deborah rce(s) Supporting Document(s) SARS coronavirus 2 RNA Not Detected [facility] This lab was ordered by [facility] and reported by [facility]. ID Date Data Source [id number] 07/02/2020 10:00:00 AM EST [facility] Name Value Range Interpretation Code Description Data Deborah rce(s) Supporting Document(s) SARS coronavirus 2 RNA Not Detected [facility] This lab was ordered by [facility] and reported by [facility]. ID Date Data Source [id number] 06/26/2020 12:20:00 PM EST [facility] Name Value Range Interpretation Code Description Data Deborah rce(s) Supporting Document(s) SARS coronavirus 2 RNA Not Detected [facility] [place] This lab was ordered by [facility] and reported by [facility]. ID Date Data Source [id number] 06/21/2020 12:00:00 AM EST eCW1 ([facility]) Name Value Range Interpretation Code Description Data Deborah rce(s) Supporting Document(s) Hemoglobin A1c/Hemoglobin.total in Blood 5.7 HEMOGLOBIN A1c eCW1 ([facility]) ID Date Data Source Comprehensive Metabolic Profile (CMP) 06/21/2020 12:00:00 AM EST eCW1 ([facility]) Name Value Range Interpretation Code Description Data Deborah rce(s) Supporting Document(s) 16 7-18 BLOOD UREA NITROGEN eCW1 ([facility]) 97 70-100 GLUCOSE, FASTING eCW1 ([facility] hospital) 0.68 0.55-1.30 CREATININE FOR GFR eCW1 ([facility]) 4.0 3.5-5.1 POTASSIUM SERUM eCW1 ([facility]) > 60.0 >45 GLOMERULAR FILTRATION RATE eCW 1 ([facility]) 142 136-145 SODIUM LEVEL eCW1 ([facility] includes the [facility]) 106 98-107 CHLORIDE LEVEL eCW1 ([facility]) 9.5 8.8-10.2 CALCIUM LEVEL eCW1 ([facility]) 32 21-32 CARBON DIOXIDE LEVEL eCW1 ([facility]) 13 7-37 AST/SGOT eCW1 ([facility]) 28 12-78 ALT/SGPT eCW1 ([facility]) 7.1 6.4-8.2 TOTAL PROTEIN eCW1 ([facility]) 3.9 3.2-5.2 ALBUMIN eCW1 ([facility]) 0.7 0.2-1.0 BILIRUBIN,TOTAL eCW1 ([facility]) 69 45-117 ALKALINE PHOSPHATASE eCW1 ([facility]) 1.2 1.2-2.2 ALBUMIN/GLOBULIN RATIO eCW1 ([facility]) ID Date Data Source CBC with Differential 06/21/2020 12:00:00 AM EST eCW1 ([facility]) Name Value Range Interpretation Code Description Data Deborah rce(s) Supporting Document(s) 7.5 4.0-10.0 WHITE BLOOD COUNT eCW1 ([facility]) 4.04 4.00-5.40 RED BLOOD COUNT eCW1 ([facility]) 30.9 27.0-33.0 MEAN CORPUSCULAR HEMOGLOB IN eCW1 ([facility]) 12.5 12.0-15.5 HEMOGLOBIN eCW1 ([facility]) 95.8 80.0-96.0 MEAN CORPUSCULAR VOLUME e CW1 ([facility]) 38.7 36.0-47.0 HEMATOCRIT eCW1 ([facility]) 294 150-450 PLATELET COUNT, AUTOMATED eCW1 ([facility]) 12.7 11.5-14.5 RED CELL DISTRIBUTION WID TH eCW1 ([facility]) 54.5 36.0-66.0 NEUTROPHILS % eCW1 ([facility]) 32.3 32.0-36.5 MEAN CORPUSCULAR HGB CONC eCW1 ([facility]) 1.7 0.0-3.0 EOS % eCW1 ([facility]) 0.9 0.0-1.0 BASO % eCW1 ([facility]) 34.2 24.0-44.0 LYMPH % eCW1 ([facility]) 7.9 2.0-8.0 MONO % eCW1 ([facility]) 0.1 0.0-0.5 EOS # eCW1 ([facility]) 0.6 0.0-0.8 MONO # eCW1 ([facility]) 2.6 1.5-5.0 LYMPH # eCW1 ([facility]) 4.1 1.5-8.5 NEUTROPHILS # eCW1 ([facility]) 0.1 0.0-0.2 BASO # eCW1 ([facility]) ID Date Data Source [id number] 06/18/2020 12:00:00 PM EST [facility] Name Value Range Interpretation Code Description Data Deborah rce(s) Supporting Document(s) SARS coronavirus 2 RNA Not Detected [facility] This lab was ordered by [facility] and reported by [facility]. ID Date Data Source [id number] 06/14/2020 12:00:00 AM EST [facility] Name Value Range Interpretation Code Description Data Deborah rce(s) Supporting Document(s) SARS coronavirus 2 Ag Negative [facility] This lab was ordered by [facility] and reported by [facility]. ID Date Data Source [id number] 06/11/2020 12:50:00 PM EST [facility] Name Value Range Interpretation Code Description Data Deborah rce(s) Supporting Document(s) SARS coronavirus 2 RNA Not Detected [facility] This lab was ordered by [facility] and reported by [facility]. ID Date Data Source [id number] 06/04/2020 06:24:00 AM EST [facility] Name Value Range Interpretation Code Description Data Deborah rce(s) Supporting Document(s) SARS coronavirus 2 RNA Not Detected [facility] This lab was ordered by [facility] and reported by [facility]. ID Date Data Source [id number] 05/28/2020 12:45:00 PM EST [facility] Name Value Range Interpretation Code Description Data Deborah rce(s) Supporting Document(s) SARS coronavirus 2 RNA Not Detected [facility] This lab was ordered by [facility] and reported by [facility]. ID Date Data Source [id number] 05/21/2020 12:00:00 PM EST [facility] Name Value Range Interpretation Code Description Data Deborah rce(s) Supporting Document(s) SARS coronavirus 2 RNA Not Detected [facility] This lab was ordered by [facility] and reported by [facility]. ID Date Data Source [id number] 05/14/2020 01:32:00 PM EST [facility] Name Value Range Interpretation Code Description Data Deborah rce(s) Supporting Document(s) SARS coronavirus 2 RNA Not Detected [facility] This lab was ordered by [facility] and reported by [facility]. ID Date Data Source [id number] 05/07/2020 08:30:00 AM EST [facility] Name Value Range Interpretation Code Description Data Deborah rce(s) Supporting Document(s) SARS coronavirus 2 RNA Not Detected [facility] This lab was ordered by [facility] and reported by [facility]. ID Date Data Source [id number] 04/30/2020 01:00:00 PM EST [facility] Name Value Range Interpretation Code Description Data Deborah rce(s) Supporting Document(s) SARS coronavirus 2 RNA Not Detected [facility] This lab was ordered by [facility] and reported by [facility]. ID Date Data Source [id number] 04/23/2020 08:36:00 AM EST [facility] Name Value Range Interpretation Code Description Data Deborah rce(s) Supporting Document(s) SARS coronavirus 2 RNA [facility] This lab was ordered by [facility] and reported by [facility]. ID Date Data Source [id number] 04/16/2020 02:00:00 PM EST [facility] Name Value Range Interpretation Code Description Data Deborah rce(s) Supporting Document(s) SARS coronavirus 2 RNA [facility] This lab was ordered by [facility] and reported by [facility]. ID Date Data Source [id number] 04/09/2020 09:15:00 AM EST [facility] Name Value Range Interpretation Code Description Data Deborah rce(s) Supporting Document(s) SARS coronavirus 2 RNA [facility] This lab was ordered by [facility] and reported by [facility]. ID Date Data Source [id number] 04/02/2020 01:08:00 PM EST [facility] Name Value Range Interpretation Code Description Data Deborah rce(s) Supporting Document(s) SARS coronavirus 2 RNA [facility] This lab was ordered by [facility] and reported by [facility]. ID Date Data Source [id number] 03/26/2020 07:00:00 AM EST [facility] Name Value Range Interpretation Code Description Data Edborah rce(s) Supporting Document(s) SARS coronavirus 2 RNA [facility] This lab was ordered by [facility] and reported by [facility]. ID Date Data Source [id number] 03/19/2020 02:00:00 PM EST [facility] Name Value Range Interpretation Code Description Data Deborah rce(s) Supporting Document(s) SARS coronavirus 2 RNA [facility] This lab was ordered by [facility] and reported by [facility]. ID Date Data Source [id number] 03/12/2020 07:30:00 AM EST [facility] Name Value Range Interpretation Code Description Data Deborah rce(s) Supporting Document(s) SARS coronavirus 2 RNA [facility] This lab was ordered by [facility] and reported by [facility]. ID Date Data Source [id number] 03/05/2020 12:00:00 PM EST [facility] Name Value Range Interpretation Code Description Data Deborah rce(s) Supporting Document(s) SARS coronavirus 2 RNA [facility] This lab was ordered by [facility] and reported by [facility]. ID Date Data Source [id number] 02/29/2020 11:00:00 AM EST [facility] Name Value Range Interpretation Code Description Data Deborah rce(s) Supporting Document(s) SARS coronavirus 2 RNA [facility] This lab was ordered by [facility] and reported by [facility]. ID Date Data Source [id number] 02/20/2020 02:00:00 PM EDT [facility] Name Value Range Interpretation Code Description Data Deborah rce(s) Supporting Document(s) SARS coronavirus 2 RNA [facility] This lab was ordered by [facility] and reported by [facility]. ID Date Data Source [id number] 02/13/2020 07:55:00 AM EDT [facility] Name Value Range Interpretation Code Description Data Deborah rce(s) Supporting Document(s) SARS coronavirus 2 RNA [facility] This lab was ordered by [facility] and reported by [facility]. ID Date Data Source [id number] 02/06/2020 12:00:00 PM EDT [facility] Name Value Range Interpretation Code Description Data Deborah rce(s) Supporting Document(s) SARS coronavirus 2 RNA [facility] This lab was ordered by [facility] and reported by [facility]. ID Date Data Source [id number] 01/30/2020 08:00:00 AM EDT [facility] Name Value Range Interpretation Code Description Data Deborah rce(s) Supporting Document(s) SARS coronavirus 2 RNA [facility] This lab was ordered by [facility] and reported by [facility]. ID Date Data Source [id number] 01/23/2020 10:56:00 AM EDT [facility] Name Value Range Interpretation Code Description Data Deborah rce(s) Supporting Document(s) SARS coronavirus 2 RNA [facility] This lab was ordered by [facility] and reported by [facility]. ID Date Data Source [id number] 01/16/2020 08:02:00 AM EDT [facility] Name Value Range Interpretation Code Description Data Deborah rce(s) Supporting Document(s) SARS coronavirus 2 RNA [facility] This lab was ordered by [facility] and reported by [facility]. ID Date Data Source [id number] 01/09/2020 11:05:00 AM EDT [facility] Name Value Range Interpretation Code Description Data Deborah rce(s) Supporting Document(s) SARS coronavirus 2 RNA [facility] This lab was ordered by [facility] and reported by [facility]. ID Date Data Source [id number] 01/02/2020 08:31:00 AM EDT [facility] Name Value Range Interpretation Code Description Data Deborah rce(s) Supporting Document(s) SARS coronavirus 2 RNA [facility] This lab was ordered by [facility] and reported by [facility]. ID Date Data Source [id number] 12/26/2019 01:47:00 PM EDT [facility] Name Value Range Interpretation Code Description Data Deborah rce(s) Supporting Document(s) SARS coronavirus 2 RNA [facility] This lab was ordered by [facility] and reported by [facility]. ID Date Data Source [id number] 12/19/2019 09:33:00 AM EDT [facility] Name Value Range Interpretation Code Description Data Deborah rce(s) Supporting Document(s) SARS coronavirus 2 RNA [facility] This lab was ordered by [facility] and reported by [facility]. Procedure Social History Code Duration Value Status Description Data Source(s ) Smoking 02/04/2021 12:00:00 AM EDT Never Smoker completed Never S moker eCW1 ([facility]) Smoking 10/18/2020 12:00:00 AM EDT Never Smoker completed Never S moker eCW1 ([facility]) Smoking 10/18/2020 12:00:00 AM EDT Never Smoker completed Never S moker eCW1 ([facility]) Smoking 10/18/2020 12:00:00 AM EDT Never Smoker completed Never S moker eCW1 ([facility]) Smoking 07/22/2020 12:00:00 AM EDT Never Smoker completed Never S moker eCW1 ([facility]) Smoking 07/22/2020 12:00:00 AM EDT Never Smoker completed Never S moker eCW1 ([facility]) Smoking 06/21/2020 12:00:00 AM EST Never Smoker completed Never S moker eCW1 ([facility]) Smoking 06/21/2020 12:00:00 AM EST Never Smoker completed Never S moker eCW1 ([facility]) Smoking 06/21/2020 12:00:00 AM EST Never Smoker completed Never S moker eCW1 ([facility]) Vital Signs ID Date Data Source UNK Name Value Range Interpretation Code Description Data Source(s) Body weight 133 [lb_av] 133 [lb_av] eCW1 ([facility]) Body weight 60.33 kg 60.33 kg [facility] Body height 60 [in_i] 60 [in_i] [facility] Body mass index (BMI) [Ratio] 25.97 kg/m2 25.97 kg/m2 eCW1 ([facility]) Systolic blood pressure 140 mm[Hg] 140 mm[Hg] e CW1 ([facility]) Diastolic blood pressure 60 mm[Hg] 60 mm[Hg] eCW1 ([facility]) Body weight 136.8 [lb_av] 136.8 [lb_av] eCW1 ([facility]) Body height [in_i] eCW1 ([facility] Body mass index (BMI) [Ratio] 26.49 kg/m2 26.49 kg/m2 eCW1 ([facility]) Heart rate 80 /min 80 /min eCW1 ([facility]) Systolic blood pressure 165 mm[Hg] 165 mm[Hg] e CW1 ([facility]) Diastolic blood pressure 64 mm[Hg] 64 mm[Hg] eCW1 ([facility]) Respiratory rate 16 /min 16 /min eCW1 ([facility]) Body temperature 98.5 [degF] 98.5 [degF] eCW1 ( [facility]) Patient Treatment Plan of Care Planned Activity Planned Date Details Description Data Source (s) Dicyclomine Hydrochloride 20 MG Oral Tablet 02/04/2021 12:00:00 AM EDT eCW1 ([facility]) Losartan Potassium 25 MG Oral Tablet 07/11/2020 12:00:00 AM EDT eCW1 ([facility]) Lisinopril 5 MG Oral Tablet 06/21/2020 12:00:00 AM EST eCW1 ([facility]) Lisinopril 5 MG Oral Tablet 06/21/2020 12:00:00 AM EST eCW1 ([facility])
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
[2021-02-13] MEDS ORDERED: KETOROLAC 30 MG/ML 1ML VIAL IV ONE (11:45)
[2021-02-13] MEDS ORDERED: NS 500 ML IV ONE (11:45)
[2021-02-13] MEDS ORDERED: ONDANSETRON 4MG/2ML VIAL IV ONE (11:45)
[2021-02-13 12:15] LABS: BASO # 0.1 10^3/uL (0.0-0.2); BASO % 0.6 % (0.0-1.0); EOS % 0.4 % (0.0-3.0); HEMATOCRIT 39.3 % (36.0-47.0); HEMOGLOBIN 13.2 g/dl (12.0-15.5); LYMPH # 1.9 10^3/uL (1.5-5.0); LYMPH % 22.2 % (24.0-44.0); MEAN CORPUSCULAR HEMOGLOBIN 31.7 pg (27.0-33.0); MEAN CORPUSCULAR HGB CONC 33.6 g/dl (32.0-36.5); MEAN CORPUSCULAR VOLUME 94.2 fl (80.0-96.0); MONO # 0.6 10^3/uL (0.0-0.8); MONO % 6.9 % (2.0-8.0); NEUTROPHILS # 5.8 10^3/uL (1.5-8.5); NEUTROPHILS % 69.3 % (36.0-66.0); PLATELET COUNT, AUTOMATED 319 10^3/uL (150-450); RED BLOOD COUNT 4.17 10^6/uL (4.00-5.40); WHITE BLOOD COUNT 8.4 10^3/uL (4.0-10.0)
[2021-02-13 12:17] LABS: APPEARANCE, URINE HAZY (CLEAR); BACTERIA, URINE AUTO NEGATIVE (NEGATIVE); BILIRUBIN, URINE AUTO NEGATIVE (NEGATIVE); BLOOD, URINE BLOOD NEGATIVE (NEGATIVE); COLOR, URINE YELLOW (YELLOW); GLUCOSE, URINE (UA) AUTO NEGATIVE (NEGATIVE); KETONE, URINE AUTO NEGATIVE (NEGATIVE); LEUKOCYTE ESTERASE, URINE AUTO TRACE (NEGATIVE); MUCUS, URINE SMALL (NEGATIVE); NITRITE, URINE AUTO NEGATIVE (NEGATIVE); PROTEIN, URINE AUTO NEGATIVE (NEGATIVE); RBC, URINE AUTO 2 /HPF (0-3); SPECIFIC GRAVITY URINE AUTO 1.015 (1.002-1.035); SQUAMOUS EPITHELIAL CELL UR AU 4 /HPF (0-6); UROBILINOGEN, URINE AUTO 0.2 mg/dL (0.0-2.0); WBC, URINE AUTO 2 /HPF (0-3)
[2021-02-13 12:34] LABS: ALBUMIN 3.9 GM/DL (3.2-5.2); ALT/SGPT 17 U/L (12-78); BILIRUBIN,DIRECT 0.2 MG/DL (0.0-0.2); BILIRUBIN,TOTAL 0.8 MG/DL (0.2-1.0); BLOOD UREA NITROGEN 12 MG/DL (7-18); CALCIUM LEVEL 9.8 MG/DL (8.8-10.2); CARBON DIOXIDE LEVEL 31 MEQ/L (21-32); CHLORIDE LEVEL 106 MEQ/L (98-107); CREATININE FOR GFR 0.64 MG/DL (0.55-1.30); GLOMERULAR FILTRATION RATE > 60.0 (>45); GLUCOSE, FASTING 104 MG/DL (70-100); LIPASE 103 U/L (73-393); POTASSIUM SERUM 3.8 MEQ/L (3.5-5.1); SODIUM LEVEL 141 MEQ/L (136-145); TOTAL PROTEIN 7.1 GM/DL (6.4-8.2)
[2021-02-13] MEDS ORDERED: ISOVUE-370 76% 100ML VIAL As Ordered ONE (13:08)
--- OUTSIDE RECORDS SUMMARY | 2021-02-13 13:29 | CCD ---
Author Author [facility] Organization [facility] Address Unknown Phone Unavailable Support Name Relationship Address Phone SOTO ED LA O Next Of Kin [address] [place] [address] [facility] Next Of Kin [address] [place] [address] Kat ROMERO Next Of Kin [id number] [place] [address] [place] [address] Re-disclosure Warning The records that you are [...] is protected by Article 27-F of the [facility] Public Health law. If you continue you may have access to information: Regarding HIV / AIDS; Provided by facilities licensed or operated by the [facility] Office of Mental Health; or Provided by the [facility] Office for People With Developmental Disabilities. If such information is present, then the following [facility] mandated warning applies: This information has been [...] law may result in a fine or senior care sentence or both. A general authorization for the release of medical or other information is NOT sufficient authorization for further disc losure. Family History Family Member Name Family Member Gender Family Member Status Date o f Status Description Data Source(s) Unknown Unknown Problem MEDENT ([facility] mother,father Unknown Female Problem MEDENT ([facility] Encounters Encounter Providers Location Date Indications Data Source(s ) Unknown [address] [facility] [place] [address] 02/06/2021 12:00:00 AM EDT [facility]CW1 ([facility] [place]) Unknown [address] [facility] [place] [address] 02/03/2021 12:00:00 AM EDT [facility] [address] [facility] [place] [address] 01/22/2021 12:00:00 AM EDT [facility]CW1 [facility] Unknown [address] [facility] [place] [address] 10/25/2020 12:00:00 AM EDT eCW1 ([facility] [place]) Unknown [address] [facility] [place] [address] 10/11/2020 12:00:00 AM EDT eCW1 ([facility] Outpatient [address] [facility] [place] [address] 07/22/2020 12:00:00 AM EDT eCW1 ([facility]) Unknown [address] [facility] [place] [address] 07/15/2020 12:00:00 AM EDT eCW1 ([facility] [place]) Outpatient [address] [facility] [place] [address] 06/21/2020 12:00:00 AM EST eCW1 ([facility] [place]) Unknown [address] [facility] [place] [address] 06/21/2020 12:00:00 AM EST eCW1 ([facility]) Unknown [address] [facility] [place] [address] 04/03/2020 12:00:00 AM EST eCW1 ([facility]) [place] [address] [facility] [place] [address] 01/09/2020 12:00:00 AM EDT eCW1 ([facility]) Immunizations Vaccine Date Status Description Data Source(s) COVID-19 dose #2 given elsewhere Unspecified 05/20/2020 11:1 6:00 AM EST completed eCW1 ([facility]) COVID-19 dose #2 given elsewhere Unspecified 05/20/2020 11:1 6:00 AM EST completed eCW1 ([facility]) COVID-19 dose #2 given elsewhere Unspecified 05/20/2020 11:1 6:00 AM EST completed eCW1 ([facility]) COVID-19 dose #2 given elsewhere Unspecified 05/20/2020 11:1 6:00 AM EST completed eCW1 ([facility]) COVID-19 dose #2 given elsewhere Unspecified 05/20/2020 11:1 6:00 AM EST completed eCW1 ([facility]) COVID-19 dose #2 given elsewhere Unspecified 05/20/2020 11:1 6:00 AM EST completed eCW1 ([facility]) COVID-19 dose #2 given elsewhere Unspecified 05/20/2020 11:1 6:00 AM EST completed eCW1 ([facility]) COVID-19 dose #2 given elsewhere Unspecified 05/20/2020 11:1 6:00 AM EST completed eCW1 ([facility]) COVID-19 dose #2 given elsewhere Unspecified 05/20/2020 11:1 6:00 AM EST completed eCW1 ([facility]) COVID-19 VACCINE Pfizer 05/20/2020 12:00:00 AM EST completed [facility] Vaccine Series Complete: YESThis Data wa s Submitted to [facility] Via [facility]. COVID-19 VACCINE Pfizer 04/29/2020 12:00:00 AM EST completed [facility] Vaccine Series Complete: NOThis Data was Submitted to [facility] Via [facility]. Medications Medication Brand Name Start Date Product Form Dose Route Admi nistrative Instructions Pharmacy Instructions Status Indications Reaction Description Data Source(s) Dicyclomine Hydrochloride 20 MG Oral Tablet Dicyclomin e HCl 20 MG Dicyclomine HCl 20 MG 02/04/2021 12:00:00 AM EDT 1.0 {tablet} ac tive Dicyclomine HCl 20 MG eCW1 ([facility]) Losartan Potassium 25 MG Oral Tablet Losartan Potassium 25 M G 07/11/2020 12:00:00 AM EDT 1.0 {tablet} active Lo sartan Potassium 25 MG eCW1 ([facility]) Losartan Potassium 25 MG Oral Tablet Losartan Potassium 25 M G 07/11/2020 12:00:00 AM EDT 1.0 {tablet} active Lo sartan Potassium 25 MG eCW1 ([facility]) Lisinopril 5 MG Oral Tablet Lisinopril 5 MG 06/21/2020 12:00:00 AM EST 1.0 {tablet} active Lisinopril 5 MG eCW1 ([facility]) Lisinopril 5 MG Oral Tablet Lisinopril 5 MG 06/21/2020 12:00:00 AM EST 1.0 {tablet} active Lisinopril 5 MG eCW1 ([facility]) Insurance Providers Payer name Policy type / Coverage type Policy ID Covered democrat ID Covered democrat's relationship to ulloa Policy [place] Plan Information [place] 302/307 [id number] SP [id number] ANSI-Commercial [id number] ANSI-Commercial [id number] ANSI-Commercial [id number] ANSI-Commercial [id number] ANSI-Commercial [id number] ANSI-Commercial [id number] ANSI-Commercial [id number] ANSI-Commercial [id number] EXCELLUS BCBS B [id number] S VYS [id number] BCBS OF [facility] 306/806 [id number] SP [id number] ANSI-Commercial [id number] ANSI-Commercial [id number] ANSI-Commercial [id number] Aetna Ppo/Pos/Nap/MC Medispencer Part B [id number] Self [id number] BCBS/[employer] Commercial [id number] Self [id number] BS [place] Commercial [id number] Self 806 Aetna Ppo/Pos/Nap/MC Medigap Part B [id number] Self BCBS/[employer] Commercial [id number] Self BCBS OF [place] 306/806 [id number] SP [id number] BCBS [place] PPO 302/307 [id number] SP [id number] [facility] [place] [id number] SP [id number] [facility] P [id number] S [id number] BCBS OF [place] 306/806 [id number] SP [id number] Problems, Conditions, and Diagnoses Code Display Name Description Problem Type Effective Dates Data Source(s) K29.70 9345383 Gastritis without bl eeding, unspecified chronicity, unspecified gastritis type Problem 10/18/2020 12:00:00 AM EDT eCW1 ([facility]) Surgeries/Procedures No Information Results ID Date Data Source [id number] 01/16/2021 12:00:00 AM EDT [facility] Name Value Range Interpretation Code Description Data Deborah rce(s) Supporting Document(s) SARS coronavirus 2 Ag Negative [facility] This lab was ordered by [facility] and reported by [facility]. ID Date Data Source [id number] 01/06/2021 12:00:00 AM EDT [facility] Name Value Range Interpretation Code Description Data Deborah rce(s) Supporting Document(s) SARS coronavirus 2 Ag Negative [facility] This lab was ordered by [facility] and reported by [facility]. ID Date Data Source [id number] 12/23/2020 12:00:00 AM EDT [facility] Name Value Range Interpretation Code Description Data Deborah rce(s) Supporting Document(s) SARS coronavirus 2 Ag Negative [facility] This lab was ordered by [facility] and reported by [facility]. ID Date Data Source [id number] 12/16/2020 12:00:00 AM EDT [facility] Name Value Range Interpretation Code Description Data Deborah rce(s) Supporting Document(s) SARS coronavirus 2 Ag Negative [facility] This lab was ordered by [facility] and reported by [facility]. ID Date Data Source [id number] 12/10/2020 12:00:00 AM EDT [facility] Name Value Range Interpretation Code Description Data Deborah rce(s) Supporting Document(s) SARS coronavirus 2 Ag Negative [facility] This lab was ordered by [facility] and reported by [facility]. ID Date Data Source [id number] 10/04/2020 12:00:00 AM EDT [facility] Name Value Range Interpretation Code Description Data Deborah rce(s) Supporting Document(s) SARS coronavirus 2 Ag Negative [facility] This lab was ordered by [facility] and reported by [facility]. ID Date Data Source [id number] 10/01/2020 12:00:00 AM EDT [facility] Name Value Range Interpretation Code Description Data Deborah rce(s) Supporting Document(s) SARS coronavirus 2 Ag Negative [facility] This lab was ordered by [facility] and reported by [facility]. ID Date Data Source [id number] 09/27/2020 12:00:00 AM EDT [facility] Name Value Range Interpretation Code Description Data Deborah rce(s) Supporting Document(s) SARS coronavirus 2 Ag Negative [facility] This lab was ordered by [facility] and reported by [facility]. ID Date Data Source [id number] 09/20/2020 12:00:00 AM EDT [facility] Name Value Range Interpretation Code Description Data Deborah rce(s) Supporting Document(s) SARS coronavirus 2 Ag Negative [facility] This lab was ordered by [facility] and reported by [facility]. ID Date Data Source [id number] 09/13/2020 12:00:00 AM EDT [facility] Name Value Range Interpretation Code Description Data Deborah rce(s) Supporting Document(s) SARS coronavirus 2 Ag Negative [facility] This lab was ordered by [facility] and reported by [facility]. ID Date Data Source [id number] 08/30/2020 12:00:00 AM EDT [facility] Name Value Range Interpretation Code Description Data Deborah rce(s) Supporting Document(s) SARS coronavirus 2 Ag Negative [facility] This lab was ordered by [facility] and reported by [facility]. ID Date Data Source [id number] 08/27/2020 12:00:00 AM EDT [facility] Name Value Range Interpretation Code Description Data Deborah rce(s) Supporting Document(s) SARS coronavirus 2 Ag Negative [facility] This lab was ordered by [facility] and reported by [facility]. ID Date Data Source [id number] 08/06/2020 12:00:00 AM EDT [facility] Name Value Range Interpretation Code Description Data Deborah rce(s) Supporting Document(s) SARS coronavirus 2 Ag Negative [facility] This lab was ordered by [facility] and reported by [facility]. ID Date Data Source [id number] 07/23/2020 12:00:00 AM EDT [facility] Name Value Range Interpretation Code Description Data Deborah rce(s) Supporting Document(s) SARS coronavirus 2 Ag Negative [facility] This lab was ordered by [facility] and reported by [facility]. ID Date Data Source [id number] 07/16/2020 08:40:00 AM EDT [facility] Name Value Range Interpretation Code Description Data Deborah rce(s) Supporting Document(s) SARS coronavirus 2 RNA Not Detected [facility] [place] This lab was ordered by [facility] and reported by [facility]. ID Date Data Source [id number] 07/09/2020 12:00:00 PM EDT [facility] Name Value Range Interpretation Code Description Data Deborah rce(s) Supporting Document(s) SARS coronavirus 2 RNA Not Detected [facility] [place] This lab was ordered by [facility] and reported by [facility]. ID Date Data Source [id number] 07/02/2020 10:00:00 AM EST [facility] Name Value Range Interpretation Code Description Data Deborah rce(s) Supporting Document(s) SARS coronavirus 2 RNA Not Detected [facility] [place] This lab was ordered by [facility] and reported by [facility]. ID Date Data Source [id number] 06/26/2020 12:20:00 PM EST [facility] Name Value Range Interpretation Code Description Data Deborah rce(s) Supporting Document(s) SARS coronavirus 2 RNA Not Detected [facility] [place] This lab was ordered by [facility] and reported by [facility]. ID Date Data Source [id number] 06/21/2020 12:00:00 AM EST eCW1 ([facility]) Name Value Range Interpretation Code Description Data Deborah rce(s) Supporting Document(s) Hemoglobin A1c/Hemoglobin.total in Blood 5.7 HEMOGLOBIN A1c eCW1 ([facility]) ID Date Data Source Comprehensive Metabolic Profile (CMP) 06/21/2020 12:00:00 AM EST eCW1 ([facility]) Name Value Range Interpretation Code Description Data Deborah rce(s) Supporting Document(s) 16 7-18 BLOOD UREA NITROGEN eCW1 ([facility]) 97 70-100 GLUCOSE, FASTING eCW1 ([facility]) 0.68 0.55-1.30 CREATININE FOR GFR eCW1 ([facility]) 4.0 3.5-5.1 POTASSIUM SERUM eCW1 ([facility]) > 60.0 >45 GLOMERULAR FILTRATION RATE eCW 1 ([facility]) 142 136-145 SODIUM LEVEL eCW1 ([facility]) 106 98-107 CHLORIDE LEVEL eCW1 ([facility]) 9.5 8.8-10.2 CALCIUM LEVEL eCW1 ([facility]) 32 21-32 CARBON DIOXIDE LEVEL eCW1 ([facility]) 13 7-37 AST/SGOT eCW1 ([facility]) 28 12-78 ALT/SGPT eCW1 ([facility]) 7.1 6.4-8.2 TOTAL PROTEIN eCW1 ([facility]) 3.9 3.2-5.2 ALBUMIN eCW1 ([facility]) 0.7 0.2-1.0 BILIRUBIN,TOTAL eCW1 ([facility]) 69 45-117 ALKALINE PHOSPHATASE eCW1 ([facility]) 1.2 1.2-2.2 ALBUMIN/GLOBULIN RATIO eCW1 ([facility]) ID Date Data Source CBC with Differential 06/21/2020 12:00:00 AM EST eCW1 ([facility]) Name Value Range Interpretation Code Description Data Deborah rce(s) Supporting Document(s) 7.5 4.0-10.0 WHITE BLOOD COUNT eCW1 ([facility]) 4.04 4.00-5.40 RED BLOOD COUNT eCW1 ([facility]) 30.9 27.0-33.0 MEAN CORPUSCULAR HEMOGLOB IN eCW1 ([facility]) 12.5 12.0-15.5 HEMOGLOBIN eCW1 ([facility]) 95.8 80.0-96.0 MEAN CORPUSCULAR VOLUME e CW1 ([facility]) 38.7 36.0-47.0 HEMATOCRIT eCW1 ([facility]) 294 150-450 PLATELET COUNT, AUTOMATED eCW1 ([facility]) 12.7 11.5-14.5 RED CELL DISTRIBUTION WID TH eCW1 ([facility]) 54.5 36.0-66.0 NEUTROPHILS % eCW1 ([facility]) 32.3 32.0-36.5 MEAN CORPUSCULAR HGB CONC eCW1 ([facility]) 1.7 0.0-3.0 EOS % eCW1 ([facility]) 0.9 0.0-1.0 BASO % eCW1 ([facility]) 34.2 24.0-44.0 LYMPH % eCW1 ([facility]) 7.9 2.0-8.0 MONO % eCW1 ([facility]) 0.1 0.0-0.5 EOS # eCW1 ([facility]) 0.6 0.0-0.8 MONO # eCW1 ([facility]) 2.6 1.5-5.0 LYMPH # eCW1 ([facility]) 4.1 1.5-8.5 NEUTROPHILS # eCW1 ([facility]) 0.1 0.0-0.2 BASO # eCW1 ([facility]) ID Date Data Source [id number] 06/18/2020 12:00:00 PM EST [facility] Name Value Range Interpretation Code Description Data Deborah rce(s) Supporting Document(s) SARS coronavirus 2 RNA Not Detected [facility] [place] This lab was ordered by [facility] and reported by [facility]. ID Date Data Source [id number] 06/14/2020 12:00:00 AM EST [facility] Name Value Range Interpretation Code Description Data Deborah rce(s) Supporting Document(s) SARS coronavirus 2 Ag Negative [facility] This lab was ordered by [facility] and reported by [facility]. ID Date Data Source [id number] 06/11/2020 12:50:00 PM EST [facility] Name Value Range Interpretation Code Description Data Deborah rce(s) Supporting Document(s) SARS coronavirus 2 RNA Not Detected [facility] [place] This lab was ordered by [facility] and reported by [facility]. ID Date Data Source [id number] 06/04/2020 06:24:00 AM EST [facility] Name Value Range Interpretation Code Description Data Deborah rce(s) Supporting Document(s) SARS coronavirus 2 RNA Not Detected [facility] [place] This lab was ordered by [facility] and reported by [facility]. ID Date Data Source [id number] 05/28/2020 12:45:00 PM EST [facility] Name Value Range Interpretation Code Description Data Deborah rce(s) Supporting Document(s) SARS coronavirus 2 RNA Not Detected [facility] [place] This lab was ordered by [facility] and reported by [facility]. ID Date Data Source [id number] 05/21/2020 12:00:00 PM EST [facility] Name Value Range Interpretation Code Description Data Deborah rce(s) Supporting Document(s) SARS coronavirus 2 RNA Not Detected [facility] [place] This lab was ordered by [facility] and reported by [facility]. ID Date Data Source [id number] 05/14/2020 01:32:00 PM EST [facility] Name Value Range Interpretation Code Description Data Deborah rce(s) Supporting Document(s) SARS coronavirus 2 RNA Not Detected [facility] [place] This lab was ordered by [facility] and reported by [facility]. ID Date Data Source [id number] 05/07/2020 08:30:00 AM EST [facility] Name Value Range Interpretation Code Description Data Deborah rce(s) Supporting Document(s) SARS coronavirus 2 RNA Not Detected [facility] [place] This lab was ordered by [facility] and reported by [facility]. ID Date Data Source [id number] 04/30/2020 01:00:00 PM EST [facility] Name Value Range Interpretation Code Description Data Deborah rce(s) Supporting Document(s) SARS coronavirus 2 RNA Not Detected [facility] [place] This lab was ordered by [facility] and reported by [facility]. ID Date Data Source [id number] 04/23/2020 08:36:00 AM EST [facility] Name Value Range Interpretation Code Description Data Deborah rce(s) Supporting Document(s) SARS coronavirus 2 RNA [facility] This lab was ordered by [facility] and reported by [facility]. ID Date Data Source [id number] 04/16/2020 02:00:00 PM EST [facility] Name Value Range Interpretation Code Description Data Deborah rce(s) Supporting Document(s) SARS coronavirus 2 RNA [facility] This lab was ordered by [facility] and reported by [facility]. ID Date Data Source [id number] 04/09/2020 09:15:00 AM EST [facility] Name Value Range Interpretation Code Description Data Deborah rce(s) Supporting Document(s) SARS coronavirus 2 RNA [facility] This lab was ordered by [facility] and reported by [facility]. ID Date Data Source [id number] 04/02/2020 01:08:00 PM EST [facility] Name Value Range Interpretation Code Description Data Deborah rce(s) Supporting Document(s) SARS coronavirus 2 RNA [facility] This lab was ordered by [facility] and reported by [facility]. ID Date Data Source [id number] 03/26/2020 07:00:00 AM EST [facility] Name Value Range Interpretation Code Description Data Deborah rce(s) Supporting Document(s) SARS coronavirus 2 RNA [facility] This lab was ordered by [facility] and reported by [facility]. ID Date Data Source [id number] 03/19/2020 02:00:00 PM EST [facility] Name Value Range Interpretation Code Description Data Deborah rce(s) Supporting Document(s) SARS coronavirus 2 RNA [facility] This lab was ordered by [facility] and reported by [facility]. ID Date Data Source [id number] 03/12/2020 07:30:00 AM EST [facility] Name Value Range Interpretation Code Description Data Deborah rce(s) Supporting Document(s) SARS coronavirus 2 RNA [facility] This lab was ordered by [facility] and reported by [facility]. ID Date Data Source [id number] 03/05/2020 12:00:00 PM EST [facility] Name Value Range Interpretation Code Description Data Deborah rce(s) Supporting Document(s) SARS coronavirus 2 RNA [facility] This lab was ordered by [facility] and reported by [facility]. ID Date Data Source [id number] 02/29/2020 11:00:00 AM EST [facility] Name Value Range Interpretation Code Description Data Deborah rce(s) Supporting Document(s) SARS coronavirus 2 RNA [facility] This lab was ordered by [facility] and reported by [facility]. ID Date Data Source [id number] 02/20/2020 02:00:00 PM EDT [facility] Name Value Range Interpretation Code Description Data Deborah rce(s) Supporting Document(s) SARS coronavirus 2 RNA [facility] This lab was ordered by [facility] and reported by [facility]. ID Date Data Source [id number] 02/13/2020 07:55:00 AM EDT [facility] Name Value Range Interpretation Code Description Data Deborah rce(s) Supporting Document(s) SARS coronavirus 2 RNA [facility] This lab was ordered by [facility] and reported by [facility]. ID Date Data Source [id number] 02/06/2020 12:00:00 PM EDT [facility] Name Value Range Interpretation Code Description Data Deborah rce(s) Supporting Document(s) SARS coronavirus 2 RNA [facility] This lab was ordered by [facility] and reported by [facility]. ID Date Data Source [id number] 01/30/2020 08:00:00 AM EDT [facility] Name Value Range Interpretation Code Description Data Deborah rce(s) Supporting Document(s) SARS coronavirus 2 RNA [facility] This lab was ordered by [facility] and reported by [facility]. ID Date Data Source [id number] 01/23/2020 10:56:00 AM EDT [facility] Name Value Range Interpretation Code Description Data Deborah rce(s) Supporting Document(s) SARS coronavirus 2 RNA [facility] This lab was ordered by [facility] and reported by [facility]. ID Date Data Source [id number] 01/16/2020 08:02:00 AM EDT [facility] Name Value Range Interpretation Code Description Data Deborah rce(s) Supporting Document(s) SARS coronavirus 2 RNA [facility] This lab was ordered by [facility] and reported by [facility]. ID Date Data Source [id number] 01/09/2020 11:05:00 AM EDT [facility] Name Value Range Interpretation Code Description Data Deborah rce(s) Supporting Document(s) SARS coronavirus 2 RNA [facility] This lab was ordered by [facility] and reported by [facility]. ID Date Data Source [id number] 01/02/2020 08:31:00 AM EDT [facility] Name Value Range Interpretation Code Description Data Deborah rce(s) Supporting Document(s) SARS coronavirus 2 RNA [facility] This lab was ordered by [facility] and reported by [facility]. ID Date Data Source [id number] 12/26/2019 01:47:00 PM EDT [facility] Name Value Range Interpretation Code Description Data Deborah rce(s) Supporting Document(s) SARS coronavirus 2 RNA [facility] This lab was ordered by [facility] and reported by [facility]. ID Date Data Source [id number] 12/19/2019 09:33:00 AM EDT [facility] Name Value Range Interpretation Code Description Data Deborah rce(s) Supporting Document(s) SARS coronavirus 2 RNA [facility] This lab was ordered by [facility] and reported by [facility]. Procedure Social History Code Duration Value Status Description Data Source(s ) Smoking 02/04/2021 12:00:00 AM EDT Never Smoker completed Never S moker eCW1 ([facility]) Smoking 10/18/2020 12:00:00 AM EDT Never Smoker completed Never S moker eCW1 ([facility]) Smoking 10/18/2020 12:00:00 AM EDT Never Smoker completed Never S moker eCW1 ([facility]) Smoking 10/18/2020 12:00:00 AM EDT Never Smoker completed Never S moker eCW1 ([facility]) Smoking 07/22/2020 12:00:00 AM EDT Never Smoker completed Never S moker eCW1 ([facility]) Smoking 07/22/2020 12:00:00 AM EDT Never Smoker completed Never S moker eCW1 ([facility]) Smoking 06/21/2020 12:00:00 AM EST Never Smoker completed Never S moker eCW1 ([facility]) Smoking 06/21/2020 12:00:00 AM EST Never Smoker completed Never S moker eCW1 ([facility]) Smoking 06/21/2020 12:00:00 AM EST Never Smoker completed Never S moker eCW1 ([facility]) Vital Signs ID Date Data Source UNK Name Value Range Interpretation Code Description Data Source(s) Body weight 133 [lb_av] 133 [lb_av] eCW1 ([facility]) Body weight 60.33 kg 60.33 kg eCW1 ([facility]) Body height 60 [in_i] 60 [in_i] eCW1 ([facility]) Body mass index (BMI) [Ratio] 25.97 kg/m2 25.97 kg/m2 eCW1 ([facility]) Systolic blood pressure 140 mm[Hg] 140 mm[Hg] e CW1 ([facility]) Diastolic blood pressure 60 mm[Hg] 60 mm[Hg] eCW1 ([facility]) Body weight 136.8 [lb_av] 136.8 [lb_av] eCW1 ([facility]) Respiratory rate 16 /min 16 /min eCW1 ([facility]) Body height [in_i] eCW1 ([facility]) Body mass index (BMI) [Ratio] 26.49 kg/m2 26.49 kg/m2 eCW1 ([facility]) Body temperature 98.5 [degF] 98.5 [degF] eCW1 ( [facility]) Systolic blood pressure 165 mm[Hg] 165 mm[Hg] e CW1 ([facility]) Heart rate 80 /min 80 /min eCW1 ([facility]) Diastolic blood pressure 64 mm[Hg] 64 mm[Hg] eCW1 ([facility]) Patient Treatment Plan of Care Planned Activity Planned Date Details Description Data Source (s) Dicyclomine Hydrochloride 20 MG Oral Tablet 02/04/2021 12:00:00 AM EDT eCW1 ([facility]) Losartan Potassium 25 MG Oral Tablet 07/11/2020 12:00:00 AM EDT eCW1 ([facility]) Lisinopril 5 MG Oral Tablet 06/21/2020 12:00:00 AM EST eCW1 ([facility]) Lisinopril 5 MG Oral Tablet 06/21/2020 12:00:00 AM EST eCW1 ([facility])
--- NOTE | 2021-02-13 13:40 | REP ---
INDICATION: diffuse abd pain with diarrhea x's 3 weeks COMPARISON: None. TECHNIQUE: CT Scan of the abdomen and pelvis was performed with intravenous administration of 100 cc of Isovue 370, without oral contrast. Sagittal and coronal reconstruction images are performed. FINDINGS: Lung bases: Mild fibrotic changes. Liver: A 7 mm nodule is seen in the left lobe of the liver on image 24 which I suspect represents a cyst. More inferiorly in the left lobe is a lobulated hypodense nodule measuring approximately 2.5 cm, nonspecific. At that same level of the liver in the right lobe posteriorly there is an ill-defined nodule measuring approximately 9 mm. Gallbladder: Small gallstones are layering in the dependent portion of the gallbladder. There is no biliary dilatation. Spleen: Normal. Adrenals: Normal. Pancreas: Normal. Kidneys: There is a cortical scar of the mid right kidney laterally.. There is no hydronephrosis bilaterally. A suspected cyst of the upper pole the left kidney measures 1.4 cm. Small and large bowel: Unremarkable. Free fluid: None. Abdominal aorta: No aneurysm or dissection. Adenopathy: None. Appendix: Not inflamed. Osseous structures: There are mild degenerative changes of the spine without compression deformity. Pelvis: No mass. IMPRESSION: No acute abnormalities. 3 nodules in the liver. Recommend follow-up dedicated MRI of the liver with and without contrast to further evaluate. Further evaluation should also be made of the suspected cyst of the upper pole the left kidney measuring 1.4 cm. Small gallstones in the gallbladder without biliary dilatation. <Electronically signed by Yvon Osorio > 02/13/21 [id number]
[2021-02-13 15:45] VITALS: BP 148/80
--- NOTE | 2021-02-15 07:57 | ED PDOC ---
Post-Departure Follow-Up radiology repor tfaxed to Sharon Amaya MD Feb 15, 2021 07:57
== END 2021-02-13 15:53 | disposition home or self-care (01) ==
LOC: M ED 10:30
DX: R10.9 Unspecified abdominal pain (principal); R19.7 Diarrhea, unspecified; I10 Essential (primary) hypertension; K21.9 Gastro-esophageal reflux disease without esophagitis; R93.2 Abnormal findings on diagnostic imaging of liver and biliary tract; Z79.899 Other long term (current) drug therapy; Z88.0 Allergy status to penicillin; Z88.8 Allergy status to other drugs, medicaments and biological substances
CPT/HCPCS: 74177; 80048; 80076; 81001; 83690; 85025; 96361; 96374; 96375; 99284; J1885; J2405; Q9967

== ENCOUNTER → 2021-02-14 | Outpatient (REF) | payer BC | LOC: M LAB REF 15:38 | PROVIDERS: ATTEND Student in an Organized Health Care Education/Training Program | DX: R19.7 Diarrhea, unspecified (principal); R10.84 Generalized abdominal pain ==

== ENCOUNTER → 2021-02-24 | Outpatient (CLI) | payer BC ==
[~2021-02-24] MED LIST changes: +E-Z-GAS II EFFERVESCENT PACKET (SODIUM BICARB./CITRIC ACID/SIMETHICONE) As Ordered ONE; +E-Z-HD 98% w/w 340GM SUSP BTL As Ordered ONE; +E-Z-PAQUE 96% w/w SUSP 176GM BTL As Ordered ONE
--- NOTE | 2021-02-24 18:07 | REP ---
INDICATION: GERD. COMPARISON: CT abdomen pelvis dated 02/13/2021 TECHNIQUE: This procedure was performed by JAYSON Gibson, under the direct supervision of Dr. Osorio. Images were reviewed with Dr. Osorio prior to dictation. Liquid barium and gas producing crystals were given in the erect position, as well as liquid barium in the prone oblique position in order to perform a double contrast upper GI examination. Additional liquid barium was given at the end of the examination in order to perform a small-bowel follow-through. FINDINGS: The machine silk screen printer film shows no organomegaly or pathological masses. The intestinal gas pattern is unremarkable. The oral and pharyngeal stages of deglutition were unremarkable. Esophageal transport is prompt and efficient and there is no evidence of esophagitis, stricture, or mucosal ring. There is no evidence of a hiatal hernia. Gastroesophageal reflux was observed to below the level of the morales. The stomach marc are normally outlined. The rugal folds are smooth and regular. There is no gastritis, neoplasm, or ulcerative disease. The duodenal marc are normally outlined. The mucosal folds are smooth and regular. There is no duodenitis, peptic ulcer disease or neoplasm. The visualized portion of the proximal small bowel appears normal in course and caliber. The barium column was followed through the small bowel to the level of the terminal ileum. Small bowel transit time is approximately 35 minutes. During fluoroscopy gentle palpation shows all loops are freely movable and pliable. There is no fixed angulated loops. The small bowel mucosal pattern is normal in course and caliber. There is no transition to suggest a partial small bowel obstruction. Spot filming of the terminal ileum shows it to be unremarkable. The appendix was visualized on this examination appeared unremarkable. IMPRESSION: Gastroesophageal reflux to below the level of the morales, otherwise unremarkable upper GI and small-bowel follow-through. Two minutes of fluoroscopy time was utilized for this procedure. Some fluoroscopic images are performed with last image hold technology. These images require no additional radiation. <Electronically signed by Denisse Caruso > 02/24/21 [id number] <Electronically signed by Yvon Osorio > 02/24/21 [id number]
== END ==
LOC: M RAD 09:18
PROVIDERS: ATTEND Family Medicine
DX: K21.9 Gastro-esophageal reflux disease without esophagitis (principal)

== ENCOUNTER → 2021-02-25 | Outpatient (CLI) | payer BC ==
[~2021-02-25] MED LIST changes: -E-Z-GAS II EFFERVESCENT PACKET (SODIUM BICARB./CITRIC ACID/SIMETHICONE) As Ordered ONE; -E-Z-HD 98% w/w 340GM SUSP BTL As Ordered ONE; -E-Z-PAQUE 96% w/w SUSP 176GM BTL As Ordered ONE
--- NOTE | 2021-02-25 14:48 | REP ---
INDICATION: LT SIDE RENAL CYST. COMPARISON: None. TECHNIQUE: Real-time sonographic evaluation of the kidneys with Doppler FINDINGS: Multiple ultrasonographic images of the right kidney show the right kidney to measure 10 x 5.3 x 4.3 cm. The renal cortical echotexture is unremarkable. There are no masses. There is good corticomedullary differentiation. There is no hydronephrosis. There are no perinephric fluid collections. There is evidence of a junctional defect. Multiple ultrasonographic images of the left kidney show the left kidney to measure 11.3 x 4.7 x 5 cm. The renal cortical echotexture is unremarkable. There are no masses. There is good corticomedullary differentiation. There is no hydronephrosis. There are no perinephric fluid collections. There is an incidental 2 cm cyst seen in the superior pole. IMPRESSION: Unremarkable renal ultrasonography. Incidental findings as described above. <Electronically signed by Jc Sullivan > 02/25/21 [id number]
== END ==
LOC: M RAD 13:22
PROVIDERS: ATTEND Family Medicine
DX: N28.1 Cyst of kidney, acquired (principal)

== ENCOUNTER → 2021-03-14 | Outpatient (CLI) | payer BC ==
--- NOTE | 2021-03-14 09:36 | REP ---
INDICATION: LIVER NODULE. COMPARISON: Prior CT of 02/13/2021 was reviewed. Prior ultrasound of 02/25/2021 was reviewed. TECHNIQUE: The patient refused the intravenous gadolinium administration. This causes exam limitations. 3T multiplanar MRI imaging of the liver was obtained using various sequences. FINDINGS: In addition to the aforementioned exam limitations there is significant motion artifact further decreasing image quality. In the medial segment of the left lobe of the liver there is a 1.1 cm sized focus of T1 and T2 prolongation. This is smoothly marginated. In the lateral segment of the left lobe of the liver and abutting the caudate lobe there is a 2.4 cm sized lesion which is of mixed T2 signal and intermediate low T1 signal. In the posterior segment of the right lobe of the liver there is a 1 cm sized focus of T1 and T2 prolongation which is smoothly marginated. There is a layered filling defect in the dependent portion of the gallbladder. There is a cyst in the right kidney. The pancreas and adrenal glands are within normal limits. There is no evidence of free fluid. IMPRESSION: 1. Exam limitations as described above. 2. There is a simple appearing cyst in the medial segment of the left lobe of the liver as described above. 3. Probable cyst in the posterior segment of the right lobe of the liver but of less T2 hyper signal intensity as the lesion seen in the medial segment of the left lobe. Since no gadolinium was administered this lesion remains indeterminate at this time. 4. There is an indeterminate lesion in the lateral segment of the left lobe of the liver as described above. A contrast-enhanced examination is recommended for complete evaluation. 5. Other findings as described above. <Electronically signed by Jc Sullivan > 03/14/21 1211
== END ==
LOC: M RAD 07:56
PROVIDERS: ATTEND Family Medicine
DX: K76.89 Other specified diseases of liver (principal)

== ENCOUNTER → 2021-09-15 | Outpatient (REF) | payer OTHER, MEDICARE, BC | LOC: M LAB REF 16:18 | PROVIDERS: ATTEND Physician Assistant Medical | DX: R53.83 Other fatigue (principal); R51.9 Headache, unspecified; R50.9 Fever, unspecified; R05.9 Cough, unspecified ==

== ENCOUNTER → 2021-09-25 | Outpatient (REF) | payer MEDICARE ==
[2021-09-26 12:39] LABS: BASO # 0.1 10^3/uL (0.0-0.2); BASO % 0.7 % (0.0-1.0); EOS # 0.1 10^3/uL (0.0-0.5); EOS % 0.9 % (0.0-3.0); HEMATOCRIT 39.8 % (36.0-47.0); HEMOGLOBIN 13.4 g/dl (12.0-15.5); LYMPH # 2.8 10^3/uL (1.5-5.0); MEAN CORPUSCULAR HEMOGLOBIN 31.2 pg (27.0-33.0); MEAN CORPUSCULAR HGB CONC 33.7 g/dl (32.0-36.5); MEAN CORPUSCULAR VOLUME 92.8 fl (80.0-96.0); MONO % 8.6 % (2.0-8.0); NEUTROPHILS # 7.1 10^3/uL (1.5-8.5); NEUTROPHILS % 63.5 % (36.0-66.0); PLATELET COUNT, AUTOMATED 346 10^3/uL (150-450); RED BLOOD COUNT 4.29 10^6/uL (4.00-5.40); WHITE BLOOD COUNT 11.2 10^3/uL (4.0-10.0)
[2021-09-26 14:10] LABS: ALT/SGPT 32 U/L (12-78); BILIRUBIN,TOTAL 0.6 MG/DL (0.2-1.0); BLOOD UREA NITROGEN 17 MG/DL (7-18); CALCIUM LEVEL 9.2 MG/DL (8.8-10.2); CARBON DIOXIDE LEVEL 30 MEQ/L (21-32); CHLORIDE LEVEL 101 MEQ/L (98-107); CHOLESTEROL LEVEL 219 MG/DL (<200); CREATININE FOR GFR 0.72 MG/DL (0.55-1.30); GLOMERULAR FILTRATION RATE > 60.0 (>39); GLUCOSE, FASTING 101 MG/DL (70-100); HDL CHOLESTEROL 52 MG/DL (>40); POTASSIUM SERUM 4.5 MEQ/L (3.5-5.1); SODIUM LEVEL 138 MEQ/L (136-145); TRIGLYCERIDES LEVEL 225 MG/DL (<150)
[2021-09-26 14:11] LABS: ALBUMIN 4.2 GM/DL (3.2-5.2); CHOLESTEROL RISK RATIO 4.211 (<5); LDL CHOLESTEROL 122 MG/DL (<100); MAGNESIUM LEVEL 2.2 MG/DL (1.8-2.4); NON-HDL-C 167 MG/DL; TOTAL PROTEIN 7.6 GM/DL (6.4-8.2)
[2021-09-26 18:30] LABS: HEMOGLOBIN A1c 5.7 %
== END ==
LOC: M SFHCCLAY 14:18
PROVIDERS: ATTEND Family Medicine
DX: R73.01 Impaired fasting glucose (principal); I10 Essential (primary) hypertension; E78.2 Mixed hyperlipidemia; K21.9 Gastro-esophageal reflux disease without esophagitis

== ENCOUNTER → 2022-02-05 | Outpatient (CLI) | payer OTHER | LOC: M WHC 13:06 | PROVIDERS: ATTEND Family Medicine | DX: R92.8 Other abnormal and inconclusive findings on diagnostic imaging of breast (principal) ==

== ENCOUNTER → 2022-09-14 | Outpatient (REF) | payer OTHER ==
[2022-09-14 17:25] LABS: HEMATOCRIT 37.4 % (36.0-47.0); HEMOGLOBIN 12.3 g/dl (12.0-15.5); MEAN CORPUSCULAR HEMOGLOBIN 31.5 pg (27.0-33.0); MEAN CORPUSCULAR HGB CONC 32.9 g/dl (32.0-36.5); MEAN CORPUSCULAR VOLUME 95.7 fl (80.0-96.0); PLATELET COUNT, AUTOMATED 356 10^3/uL (150-450); RED BLOOD COUNT 3.91 10^6/uL (4.00-5.40); WHITE BLOOD COUNT 8.2 10^3/uL (4.0-10.0)
[2022-09-14 17:43] LABS: HEMOGLOBIN A1c 5.7 % (4.0-6.0)
[2022-09-14 17:46] LABS: ALKALINE PHOSPHATASE 81 U/L (46-116); ALT/SGPT 20 U/L (7.0-40); AST/SGOT 17 U/L (<34); BILIRUBIN,TOTAL 1.2 MG/DL (0.3-1.2); BLOOD UREA NITROGEN 14 MG/DL (9-23); CALCIUM LEVEL 9.7 MG/DL (8.3-10.6); CARBON DIOXIDE LEVEL 31 MMOL/L (20-31); CHLORIDE LEVEL 103 MMOL/L (98-107); CHOLESTEROL LEVEL 186 MG/DL (<200); CHOLESTEROL RISK RATIO 3.53 (<5); CREATININE FOR GFR 0.68 MG/DL (0.55-1.30); GLOMERULAR FILTRATION RATE > 60.0 (>39); GLUCOSE, FASTING 101 MG/DL (74-106); HDL CHOLESTEROL 52.6 MG/DL (>40); LDL CHOLESTEROL 111.6 MG/DL (<100); MAGNESIUM LEVEL 1.8 MG/DL (1.8-2.4); NON-HDL-C 133.4 MG/DL; POTASSIUM SERUM 4.2 MMOL/L (3.5-5.1); SODIUM LEVEL 140 MMOL/L (136-145); TOTAL PROTEIN 7.1 G/DL (5.7-8.2); TRIGLYCERIDES LEVEL 109 MG/DL (<150)
== END ==
LOC: M SFHCCLAY 10:38
PROVIDERS: ATTEND Family Medicine
DX: I10 Essential (primary) hypertension (principal); R73.01 Impaired fasting glucose; K21.9 Gastro-esophageal reflux disease without esophagitis; E78.2 Mixed hyperlipidemia

== ENCOUNTER → 2023-02-16 | Outpatient (CLI) | payer OTHER | LOC: M WHC 14:18 | PROVIDERS: ATTEND Family Medicine | DX: Z12.31 Encounter for screening mammogram for malignant neoplasm of breast (principal); R92.333 Mammographic heterogeneous density, bilateral breasts ==

== ENCOUNTER → 2023-05-21 | Outpatient (REF) | payer OTHER ==
[2023-05-21 18:24] LABS: HEMATOCRIT 37.9 % (36.0-47.0); HEMOGLOBIN 12.6 g/dl (12.0-15.5); MEAN CORPUSCULAR HEMOGLOBIN 31.5 pg (27.0-33.0); MEAN CORPUSCULAR HGB CONC 33.2 g/dl (32.0-36.5); MEAN CORPUSCULAR VOLUME 94.8 fl (80.0-96.0); PLATELET COUNT, AUTOMATED 352 10^3/uL (150-450); WHITE BLOOD COUNT 9.8 10^3/uL (4.0-10.0)
[2023-05-21 18:40] LABS: ALKALINE PHOSPHATASE 78 U/L (46-116); ALT/SGPT 20 U/L (7.0-40); AST/SGOT 16 U/L (<34); BILIRUBIN,TOTAL 0.8 MG/DL (0.3-1.2); BLOOD UREA NITROGEN 12 MG/DL (9-23); CALCIUM LEVEL 9.8 MG/DL (8.3-10.6); CARBON DIOXIDE LEVEL 30 MMOL/L (20-31); CHLORIDE LEVEL 104 MMOL/L (98-107); CHOLESTEROL LEVEL 190 MG/DL (<200); CHOLESTEROL RISK RATIO 3.58 (<5); CREATININE FOR GFR 0.66 MG/DL (0.55-1.30); GLOMERULAR FILTRATION RATE > 60.0 (>39); GLUCOSE, FASTING 102 MG/DL (74-106); HEMOGLOBIN A1c 5.7 % (4.0-6.0); LDL CHOLESTEROL 111.8 MG/DL (<100); MAGNESIUM LEVEL 1.8 MG/DL (1.8-2.4); SODIUM LEVEL 140 MMOL/L (136-145); TOTAL PROTEIN 7.3 G/DL (5.7-8.2); TRIGLYCERIDES LEVEL 126 MG/DL (<150)
== END ==
LOC: M SFHCCLAY 14:14
PROVIDERS: ATTEND Family Medicine
DX: I10 Essential (primary) hypertension (principal); R73.01 Impaired fasting glucose; K21.9 Gastro-esophageal reflux disease without esophagitis; E78.2 Mixed hyperlipidemia; E55.9 Vitamin D deficiency, unspecified

== ENCOUNTER → 2023-05-21 | Outpatient (CLI) | payer OTHER | LOC: M CLY 14:41 | PROVIDERS: ATTEND Family Medicine | DX: R05.2 Subacute cough (principal); R91.8 Other nonspecific abnormal finding of lung field ==

== ENCOUNTER → 2023-08-24 | Outpatient (CLI) | payer OTHER | LOC: M CLY 14:18 | PROVIDERS: ATTEND Physician Assistant | DX: J98.11 Atelectasis (principal) ==

== ENCOUNTER → 2024-01-17 | Outpatient (CLI) | payer OTHER | LOC: M CLY 15:49 | PROVIDERS: ATTEND Family Medicine | DX: M79.644 Pain in right finger(s) (principal); Z53.9 Procedure and treatment not carried out, unspecified reason ==

== ENCOUNTER → 2024-01-17 | Outpatient (CLI) | payer OTHER | LOC: M CLY 15:52 | PROVIDERS: ATTEND Family Medicine | DX: M79.644 Pain in right finger(s) (principal); M19.041 Primary osteoarthritis, right hand ==

== ENCOUNTER → 2024-02-18 | Outpatient (CLI) | payer OTHER | LOC: M WHC 12:29 | PROVIDERS: ATTEND Family Medicine | DX: Z12.31 Encounter for screening mammogram for malignant neoplasm of breast (principal); R92.323 Mammographic fibroglandular density, bilateral breasts ==

== ENCOUNTER → 2024-05-18 | Outpatient (REF) | payer OTHER ==
[2024-05-18 18:35] LABS: HEMOGLOBIN 13.3 g/dl (12.0-15.5); MEAN CORPUSCULAR HEMOGLOBIN 31.8 pg (27.0-33.0); MEAN CORPUSCULAR HGB CONC 33.3 g/dl (32.0-36.5); MEAN CORPUSCULAR VOLUME 95.7 fl (80.0-96.0); PLATELET COUNT, AUTOMATED 322 10^3/uL (150-450); RED BLOOD COUNT 4.18 10^6/uL (4.00-5.40); WHITE BLOOD COUNT 8.8 10^3/uL (4.0-10.0)
[2024-05-18 18:51] LABS: HEMOGLOBIN A1c 5.7 % (4.0-6.0)
[2024-05-18 19:03] LABS: C REACTIVE PROTEIN QUANTITATIV 1.52 MG/DL (<1.0)
[2024-05-18 19:04] LABS: RHEUMATOID FACTOR QUANT 3.8 IU/ML (<14)
[2024-05-18 19:05] LABS: ALBUMIN 4.3 G/DL (3.2-5.2); ALKALINE PHOSPHATASE 76 U/L (35-104); ALT/SGPT 20 U/L (7.0-40); AST/SGOT 14 U/L (<34); BLOOD UREA NITROGEN 14 MG/DL (9-23); CALCIUM LEVEL 9.5 MG/DL (8.3-10.6); CARBON DIOXIDE LEVEL 30 MMOL/L (20-31); CHLORIDE LEVEL 104 MMOL/L (98-107); CHOLESTEROL LEVEL 201 MG/DL (<200); CHOLESTEROL RISK RATIO 3.37 (<5); CREATININE FOR GFR 0.69 MG/DL (0.55-1.30); GLOMERULAR FILTRATION RATE > 60.0 (>39); GLUCOSE, FASTING 87 MG/DL (74-106); HDL CHOLESTEROL 59.5 MG/DL (>40); LDL CHOLESTEROL 118.5 MG/DL (<100); NON-HDL-C 141.5 MG/DL; POTASSIUM SERUM 4.3 MMOL/L (3.5-5.1); SODIUM LEVEL 141 MMOL/L (136-145); TOTAL PROTEIN 7.5 G/DL (5.7-8.2); TRIGLYCERIDES LEVEL 115 MG/DL (<150)
== END ==
LOC: M SFHCCLAY 14:21
PROVIDERS: ATTEND Family Medicine
DX: M79.644 Pain in right finger(s) (principal); I10 Essential (primary) hypertension; R73.01 Impaired fasting glucose; K21.9 Gastro-esophageal reflux disease without esophagitis; E78.2 Mixed hyperlipidemia; E55.9 Vitamin D deficiency, unspecified

== ENCOUNTER → 2025-01-07 | Outpatient (REF) | payer OTHER ==
[2025-01-07 19:08] LABS: APPEARANCE, URINE HAZY (CLEAR); BACTERIA, URINE AUTO NEGATIVE (NEGATIVE); BILIRUBIN, URINE AUTO NEGATIVE (NEGATIVE); BLOOD, URINE BLOOD 2+ (NEGATIVE); GLUCOSE, URINE (UA) AUTO NEGATIVE (NEGATIVE); KETONE, URINE AUTO NEGATIVE (NEGATIVE); LEUKOCYTE ESTERASE, URINE AUTO 3+ (NEGATIVE); MUCUS, URINE SMALL (NEGATIVE); NITRITE, URINE AUTO NEGATIVE (NEGATIVE); PROTEIN, URINE AUTO NEGATIVE (NEGATIVE); RBC, URINE AUTO 8 /HPF (0-3); SPECIFIC GRAVITY URINE AUTO 1.016 (1.002-1.035); SQUAMOUS EPITHELIAL CELL UR AU 1 /HPF (0-6); UROBILINOGEN, URINE AUTO 0.2 mg/dL (0.0-2.0); WBC, URINE AUTO 49 /HPF (0-3)
== END ==
LOC: M LAB REF 18:41
DX: N39.0 Urinary tract infection, site not specified (principal)

== ENCOUNTER → 2025-02-19 | Outpatient (CLI) | payer OTHER | LOC: M WHC 15:25 | PROVIDERS: ATTEND Family Medicine | DX: Z12.31 Encounter for screening mammogram for malignant neoplasm of breast (principal) ==